=== PATIENT | female | born 1950 | race Caucasian/White ===

== ENCOUNTER 2019-05-18 19:59 | Emergency (ER) | payer MEDICARE, OTHER, SELFPAY ==
[2019-05-18 20:16] VITALS: BP 111/66; PULSE 70; RESP 16; TEMP 36.3; O2SAT 96; BMI 26.1
--- NOTE | 2019-05-18 20:37 | ECG_ITS ---
Measurements Intervals [place] Rate: 72 P: 61 SC: 128 QRS: 81 QRSD: 85 T: 62 QT: 403 QTc: 444 SINUS RHYTHM LOW QRS VOLTAGE [QRS DEFLECTION < 0.5/1.0 mV IN LIMB/CHEST LEADS] No previous ECG available for comparison Electronically Signed On 05-19-2019 20:45:29 WIRE TINNER by Bello Wright M.D. [id number]
--- NOTE | 2019-05-18 20:37 | XR_ITS ---
WS: [id number] PORTABLE CHEST HISTORY: cp COMPARISON: 04/15/2015 Hyperinflated lungs with changes of emphysema. Stable eventration RIGHT hemidiaphragm. No pneumonia. Normal vasculature. No pleural effusion or pneumothorax. Cardiac size: Normal. Mediastinum/Aorta: Mild atherosclerosis aorta. No osseous abnormality seen. XR/XR chest 1V portable [id number] IMPRESSION: Chronic emphysema and partially calcified aorta. No acute cardiopulmonary disea se.
[2019-05-18 21:10] LABS: Basophils # 0.1 10^3/uL (0.0-0.1); Basophils % 0.5 %; Eosinophils # 0.1 10^3/uL (0.0-0.8); Eosinophils % 0.8 %; Hematocrit 38.6 % (37.0-47.0); Hemoglobin 12.1 g/dL (11.5-15.3); Lymphocytes # 1.2 10^3/uL (0.8-4.8); Lymphocytes % 11.5 %; Mean Corpuscular HGB Conc 31.3 g/dL (30.0-36.0); Mean Corpuscular Hemoglobin 30.3 pg (28.0-34.0); Mean Corpuscular Volume 96.5 fL (81-99); Mean Platelet Volume 8.8 fL (7.4-10.4); Monocytes # 0.8 10^3/uL (0.2-0.9); Neutrophils # 8.6 10^3/uL (1.8-7.7); Neutrophils % 79.7 %; Nucleated Red Blood Cells % 0 %; Platelet Count 306 10^3/cmm (130-400); Red Cell Distribution Width 12.2 % (12.1-15.1); White Blood Count 10.7 10^3/uL (4.0-10.0)
--- NOTE | 2019-05-18 21:13 | ED_ITS ---
HPI - General Adult General: Chief complaint: General Medical Stated complaint: sob Time Seen by Provider: 05/18/19 21:13 Source: patient Mode of arrival: ambulatory Limitations: no limitations Review of Systems General: Reports: 10 or more systems reviewed and unremarkable except in HPI and below PFSH ED PFSH: Social History Smoking and tobacco status: former smoker Alcohol intake: current Marital status: History of recent travel: No Current gender identity: Female Physical Exam Const: COMMON NORMALS: no apparent distress and oriented x3 GENERAL APPEARANCE: cooperative HENMT: COMMON NORMALS: normocephalic, external ears normal, EAC's normal, TM's normal bilaterally and external nose normal HEAD & SCALP: normal to inspection and normocephalic FACE & SINUS: normal facial exam NOSE: external nose normal GENERAL EAR: hearing not grossly impaired EXTERNAL EAR: Yes external ears normal EXTERNAL AUDITORY CANAL: EAC's normal TYMPANIC MEMBRANE: TM's normal bilaterally MOUTH: oral and palatal mucosa normal THROAT: posterior oropharynx normal Eye: COMMON NORMALS: PERRL and EOMs intact bilaterally PUPIL: Yes PERRL Neck/C-Spine: COMMON NORMALS: full ROM and no lymphadenopathy Lymph: LYMPHATIC: no lymphedema noted Chest: COMMONS NORMALS: inspection of chest normal and palpation of chest normal Resp: COMMON NORMALS: normal respiratory effort and clear to auscultation bilaterally AUSCULTATION: clear to auscultation bilaterally Cardio: COMMON NORMALS: regular rate and regular rhythm RATE: regular rate RHYTHM: regular rhythm GI: COMMON NORMALS: normal to inspection, nondistended, normoactive bowel sounds and non-tender : COMMON NORMALS: Yes no CVA tenderness BLADDER/KIDNEY EXAM: Yes no CVA tenderness Back/Pelvis: COMMON NORMALS: no CVA tenderness and thoracic and lumbar spine normal to inspection Extremity: COMMON NORMALS: normal to inspection GENERAL: No edema Neuro: COMMON NORMALS: oriented x3, moves all extremities and no focal motor deficits Psych: COMMON NORMALS: mental status grossly normal and cooperative Skin: COMMON NORMALS: no rashes or lesions noted GENERAL SKIN EXAM: no rashes or lesions noted Course Vital Signs: Vital signs: Vital Signs Temperature 97.3 F L 05/18/19 20:16 Pulse Rate 70 05/18/19 20:16 Respiratory Rate 16 05/18/19 20:16 Blood Pressure 111/66 05/18/19 20:16 Pulse Oximetry 96 05/18/19 20:16 [facility] - General Adult Lab Data: Labs: Lab Results 05/18/19 Range/Units 20:54 WBC 10.7 H (4.0-10.0) 10^3/ uL RBC 4.00 L (4.1-5.3) 10^6/u L Hgb 12.1 (11.5-15.3) g/dL Hct 38.6 (37.0-47.0) % MCV 96.5 (81-99) fL MCH 30.3 (28.0-34.0) pg MCHC 31.3 (30.0-36.0) g/dL RDW 12.2 (12.1-15.1) % Plt Count 306 (130-400) 10^3/c mm MPV 8.8 (7.4-10.4) fL Neut % (Auto) 79.7 % Lymph % (Auto) 11.5 % [place] % (Auto) 7.0 % Eos % (Auto) 0.8 % Baso % (Auto) 0.5 % Neut # (Auto) 8.6 H (1.8-7.7) 10^3/u L Lymph # (Auto) 1.2 (0.8-4.8) 10^3/u L [place] # (Auto) 0.8 (0.2-0.9) 10^3/u L Eos # (Auto) 0.1 (0.0-0.8) 10^3/u L Baso # (Auto) 0.1 (0.0-0.1) 10^3/u L Nucleated RBC % (a uto) 0 % Nucleated RBCs # 0.0 /100WBC Discharge Plan Discharge Prescriptions: No Action losartan 50 mg tablet 50 mg PO BID RF: 0 rosuvastatin 40 mg tablet 40 mg PO DAILY RF: 0 budesonide 0.25 mg/2 mL suspension for nebulization 2 ml INHALATION BID RF: 0 Brovana 15 mcg/2 mL solution for nebulization 2 ml INHALATION BID RF: 0 clopidogrel 75 mg tablet 75 mg PO DAILY RF: 0 aspirin 325 mg tablet,delayed release (DR/EC) 325 mg PO DAILY RF: 0 folic acid 1 mg tablet 1 mg PO DAILY RF: 0 ergocalciferol (vitamin D2) 2,000 unit tablet 2,000 unit PO DAILY RF: 0 Coding Level of Care Code ED [employer] Supervisor for Claude Luo
[2019-05-18 21:16] LABS: Alanine Aminotransferase 14 U/L (0-33); Albumin Level 4.1 g/dL (3.5-5.2); Alkaline Phosphatase 41 IU/L (35-105); Aspartate Amino Transferase 18 U/L (0-32); Blood Urea Nitrogen 15 mg/dL (8-23); Calcium 9.6 mg/dL (8.5-10.5); Carbon Dioxide 24 mmol/L (22-29); Chloride 99 mmol/L (98-107); Globulin 3.1 g/dL (1.3-4.6); Glomerular Filtration Rate 61.9 mL/min (90-130); Glucose 116 mg/dL (65-115); Lipase 39 U/L (13-60); Sodium 137 mmol/L (136-145); Total Bilirubin 0.3 mg/dL (0.15-1.2); Total Protein 7.2 g/dL (6.6-8.7)
--- NOTE | 2019-05-18 21:21 | ED_ITS ---
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 Pt states she took some PeptoBismol and she seems to be feeling better now. The pain lasted for about 45 min, and started while she was riding in the car. She had some SOB and pain radiating up into her left arm that has also resolved. complaint: Abd pain/SOB Onset (ago): hour(s) (1) Location: abdomen, left and upper extremity Severity: moderate Quality: other (tight band around her abd) Pain Consistency: now resolved Associated symptoms: Reports dyspnea, short of breath and weakness; Deny chest pain, headache(s) or rash Review of Systems Const: Denies: fever, chills, body aches or change in appetite Eyes: Denies: blurry vision or eye discomfort ENMT: Denies: throat pain or dental pain Card: Denies: chest pain Resp: Reports: shortness of breath GI: Reports: abdominal pain; Denies: diarrhea : Denies: painful urination Musc: Reports: extremity pain Skin/Breast: Denies: rash Neuro: Denies: headache Psych: Denies: depression Murali/Lymph: Denies: easy bruising All/Imm: Denies: hives [facility] ED PFSH: Social History Smoking and tobacco status: former smoker Alcohol intake: current Marital status: History of recent travel: No Current gender identity: Female Physical Exam Const: COMMON NORMALS: no apparent distress, oriented x3 and healthy appearing HENMT: COMMON NORMALS: normocephalic and head/scalp atraumatic HEAD & SCALP: normocephalic and atraumatic Eye: COMMON NORMALS: PERRL and EOMs intact bilaterally PUPIL: Yes PERRL Neck/C-Spine: COMMON NORMALS: full ROM and supple Chest: COMMONS NORMALS: inspection of chest normal and palpation of chest normal Resp: COMMON NORMALS: normal respiratory effort, no retractions, no use of accessory muscles and clear to auscultation bilaterally AUSCULTATION: clear to auscultation bilaterally Cardio: COMMON NORMALS: regular rate, regular rhythm and no murmurs RATE: regular rate RHYTHM: regular rhythm GI: COMMON NORMALS: normal to inspection, nondistended, normoactive bowel sounds, soft to palpation, non-tender and no masses PALPATION: Yes soft Extremity: COMMON NORMALS: normal to inspection and full ROM Neuro: COMMON NORMALS: oriented x3, moves all extremities and no focal motor deficits Psych: COMMON NORMALS: mental status grossly normal, thought process normal and cooperative THOUGHT PROCESS: normal thought process Skin: COMMON NORMALS: no rashes or lesions noted and no wounds GENERAL SKIN EXAM: no rashes or lesions noted Course Vital Signs: Vital signs: Vital Signs Temperature 97.3 F L 05/18/19 20:16 Pulse Rate 70 05/18/19 20:16 Respiratory Rate 16 05/18/19 20:16 Blood Pressure 111/66 05/18/19 20:16 Pulse Oximetry 96 05/18/19 20:16 MDM - General Adult MDM Narrative: Medical decision making narrative: Patient presents here with chest pain abdominal pain is atypical in nature. Patient's had no pain here and has no risk factors. Her initial and repeat troponin here are normal and she has had no pain while she is here. She is to follow-up with her primary care doctor in 3 to 5 days is return to the ER if worsening. Lab Data: Labs: Lab Results 05/18/19 05/18/19 05/18/19 Range/Units 20:54 20:54 20:54 WBC 10.7 H (4.0-10.0) 10^3/ uL RBC 4.00 L (4.1-5.3) 10^6/u L Hgb 12.1 (11.5-15.3) g/dL Hct 38.6 (37.0-47.0) % MCV 96.5 (81-99) fL MCH 30.3 (28.0-34.0) pg MCHC 31.3 (30.0-36.0) g/dL RDW 12.2 (12.1-15.1) % Plt Count 306 (130-400) 10^3/c mm MPV 8.8 (7.4-10.4) fL Neut % (Auto) 79.7 % Lymph % (Auto) 11.5 % [place] % (Auto) 7.0 % Eos % (Auto) 0.8 % Baso % (Auto) 0.5 % Neut # (Auto) 8.6 H (1.8-7.7) 10^3/u L Lymph # (Auto) 1.2 (0.8-4.8) 10^3/u L [place] # (Auto) 0.8 (0.2-0.9) 10^3/u L Eos # (Auto) 0.1 (0.0-0.8) 10^3/u L Baso # (Auto) 0.1 (0.0-0.1) 10^3/u L Nucleated RBC % (a uto) 0 % Nucleated RBCs # 0.0 /100WBC Sodium 137 (136-145) mmol/L Potassium 4.0 (3.5-5.1) mmol/L Chloride 99 (98-107) mmol/L Carbon Dioxide 24 (22-29) mmol/L Anion Gap 18.0 (5-19) BUN 15 (8-23) mg/dL Creatinine 0.9 (0.5-0.9) mg/dL GFR Calculation 61.9 L (90-130) mL/min Glucose 116 H (65-115) mg/dL Calcium 9.6 (8.5-10.5) mg/dL Total Bilirubin 0.3 (0.15-1.2) mg/dL AST 18 (0-32) U/L ALT 14 (0-33) U/L Alkaline Phosphata se 41 (35-105) IU/L Troponin T Baselin e 20 H (0-10) ng/mL Troponin T 120 Min [place] (0-10) ng/mL Total Protein 7.2 (6.6-8.7) g/dL Albumin 4.1 (3.5-5.2) g/dL Globulin 3.1 (1.3-4.6) g/dL Lipase 39 (13-60) U/L 05/18/19 Range/Units 22:37 WBC (4.0-10.0) 10^3/ uL RBC (4.1-5.3) 10^6/u L Hgb (11.5-15.3) g/dL Hct (37.0-47.0) % MCV (81-99) fL MCH (28.0-34.0) pg MCHC (30.0-36.0) g/dL RDW (12.1-15.1) % Plt Count (130-400) 10^3/c mm MPV (7.4-10.4) fL Neut % (Auto) % Lymph % (Auto) % [place] % (Auto) % Eos % (Auto) % Baso % (Auto) % Neut # (Auto) (1.8-7.7) 10^3/u L Lymph # (Auto) (0.8-4.8) 10^3/u L [place] # (Auto) (0.2-0.9) 10^3/u L Eos # (Auto) (0.0-0.8) 10^3/u L Baso # (Auto) (0.0-0.1) 10^3/u L Nucleated RBC % (a uto) % Nucleated RBCs # /100WBC Sodium (136-145) mmol/L Potassium (3.5-5.1) mmol/L Chloride (98-107) mmol/L Carbon Dioxide (22-29) mmol/L Anion Gap (5-19) BUN (8-23) mg/dL Creatinine (0.5-0.9) mg/dL GFR Calculation (90-130) mL/min Glucose (65-115) mg/dL Calcium (8.5-10.5) mg/dL Total Bilirubin (0.15-1.2) mg/dL AST (0-32) U/L ALT (0-33) U/L Alkaline Phosphata se (35-105) IU/L Troponin T Baselin e (0-10) ng/mL Troponin T 120 Min [place] 19.64 H (0-10) ng/mL Total Protein (6.6-8.7) g/dL Albumin (3.5-5.2) g/dL Globulin (1.3-4.6) g/dL Lipase (13-60) U/L Imaging Data^: CXR: Attestation: I personally reviewed and interpreted this imaging study as follows: My impression: no acute abnormality EKG Data^: EKG 1: EKG interpretation date: 05/18/19 EKG interpretation time: 20:27 Interpretation: nsr hr [address] or t wave abnormalities EKG 2: Attestation: I personally reviewed and interpreted this EKG as follows: EKG interpretation date: 05/18/19 EKG interpretation time: 22:50 Interpretation: nsr hr [address] or t wave abnormalities Discharge Plan Discharge Patient Disposition: Home, Self-Care Clinical Impression: Chest pain Qualifiers: Chest pain type: other chest pain Qualified Code(s): R07.89 - Other chest pain Condition: Stable Prescriptions: No Action losartan 50 mg tablet 50 mg PO BID RF: 0 rosuvastatin 40 mg tablet 40 mg PO DAILY RF: 0 budesonide 0.25 mg/2 mL suspension for nebulization 2 ml INHALATION BID RF: 0 Brovana 15 mcg/2 mL solution for nebulization 2 ml INHALATION BID RF: 0 clopidogrel 75 mg tablet 75 mg PO DAILY RF: 0 aspirin 325 mg tablet,delayed release (DR/EC) 325 mg PO DAILY RF: 0 folic acid 1 mg tablet 1 mg PO DAILY RF: 0 ergocalciferol (vitamin D2) 2,000 unit tablet 2,000 unit PO DAILY RF: 0 Discharge Orders: Discharge Order (Routine); Ordered 05/18/19 Ordered By: Vita Dong Referrals: Bruce Watson MD [Primary Care Provider] - 4-7 days Discharge Diet: Advance as tolerated Discharge Activity: Resume usual activity Patient Instructions: Chest Pain (ED) Coding Level of Care Code ED Screening Technician for Chg Fwd Exam Problem Focused The documentation recorded by the Herminio dubois Ashley, accurately reflects the service I personally performed and the decisions made by Iker barry Korby, MD May 18, 2019 19:59
[2019-05-18 21:32] LABS: Troponin(5th) Baseline 20 ng/mL (0-10)
--- NOTE | 2019-05-18 22:37 | ECG_ITS ---
Measurements Intervals [place] Rate: 64 P: 23 GA: 95 QRS: 96 QRSD: 68 T: 81 QT: 405 QTc: 420 SINUS RHYTHM WITH SHORT GA INTERVAL BORDERLINE RIGHT AXIS DEVIATION [QRS AXIS > 90] LOW QRS VOLTAGE [QRS DEFLECTION < 0.5/1.0 mV IN LIMB/CHEST LEADS] ST ELEVATION, CONSIDER Early repolarization No previous ECG available for comparison Electronically Signed On 05-19-2019 20:50:38 TRIMMING INSPECTOR by Bello Wright M.D. [email or web address]
[2019-05-18 23:12] LABS: Troponin 5 2HR 19.64 ng/mL (0-10)
[2019-05-18 23:21] LABS: Troponin 5 2HR Delta -0.36 ABS# (0-10)
[2019-05-18 23:31] VITALS: BP 115/56; PULSE 68; RESP 21; O2SAT 97
== END 2019-05-18 23:31 | disposition home or self-care (01) ==
PROVIDERS: Emergency Provider Emergency Medicine; Family Provider Family Medicine; PCP Family Medicine
DX: R07.89 Other chest pain (principal); Z87.891 Personal history of nicotine dependence
CPT/HCPCS: 71045; 80053; 83690; 84484; 85025; 93005; 99281; 99283

== ENCOUNTER 2019-05-29 07:28 | Day surgery (SDC) | payer MEDICARE, OTHER, SELFPAY ==
[2019-05-26 14:03] VITALS: BMI 26.1
[2019-05-29 07:50] VITALS: BP 104/52; PULSE 80; RESP 18; TEMP 37; O2SAT 99
[2019-05-29] MEDS: sodium chloride 0.9% 1,000 ML 30 ML (07:58)
--- NOTE | 2019-05-29 08:44 | ANES.PREANE2 ---
Pre-Anesthetic Assessment Pre-Anesthetic Assessment: Height/Weight: Height 1.63 m Weight 68.946 kg Temp Pulse Resp BP Pulse Ox 98.6 F 80 18 104/52 99 05/29/19 07:50 05/29/19 07:50 05/29/19 07:50 05/29/19 07:50 05/29/19 07:50 Preop Diagnosis: FH colon cancer Proposed Procedure: Operation Date: 05/29/19 09:00 Proposed Procedures p COLON(Not Applicable) - Artur Valentin MD Was Beta Aries taken within 24 hours: N/A Last intake: Intake Last Liquid Date 05/28/19 Last Liquid Time 22:00 Last Solid Date 05/27/19 Social: Social History: Tobacco (quit 7 yr ago) and No alcohol Exam: Pre-Anes Outpt Exam: alert and oriented x 3 History/ROS: No significant history except as noted and No significant complaints Pulmonary: Pulmonary: COPD CV/HEM: CV/HEM: HTN and PVD Comments: peripheral leg stents 2012. saw Dr. Hinojosa : : None reported Hepatic: Hepatic: None reported GI: GI: GERD (occasional) Metabolic: Metabolic: Hyperlipidemia Musc/skel: Musc/skel: OA/DJD Neuropsych: Neuropsych: None reported Anesthetic Plan: ASA status: 3 Anesthesia: MAC PFSH Anesthesia PFSH: Social History Smoking and tobacco status: former smoker Alcohol intake: current Marital status: History of recent travel: No Current gender identity: Female Data Anesthesia Cardiac Studies: No Data to Display
--- NOTE | 2019-05-29 08:58 | W.PM.OPSUD ---
Surgery/Procedure H&P Update DATE OF PROCEDURE: May 29, 2019 DATE H&P PERFORMED: 05/18/19 PREOP DIAGNOSIS: FH colon cancer PLANNED PROCEDURE: Operation Date: 05/29/19 09:00 Proposed Procedures p COLON(Not Applicable) - Artur Valentin MD
[2019-05-29 09:20] VITALS: BP 81/53; PULSE 60; RESP 16; TEMP 36.3; O2SAT 100
--- NOTE | 2019-05-29 09:28 | SUR.OPER ---
RESOLUTION CLIP PLACED IN RECTUM FOR PREVENTION MEASURES FOLLOWING REMOVAL OF RECTAL POLYP.
--- NOTE | 2019-05-29 09:29 | ANE.PACU2 ---
 Inpatient post-anesthesia follow up: Airway intact: Yes Vital signs: Temperature 97.3 F Pulse Rate 60 Respiratory Rate 16 Blood Pressure 81/53 Pulse Oximetry 100 Oxygen Delivery Me thod Nasal Cannula Oxygen Flow Rate 2 Fraction of Inspir ed Oxygen Hydration adequate: Yes Nausea and vomiting: No Mental status: Baseline
[2019-05-29 09:35] VITALS: BP 102/66; PULSE 64; RESP 18; TEMP 36.3; O2SAT 99
== END 2019-05-29 09:51 | disposition home or self-care (01) ==
PROVIDERS: Family Provider Family Medicine; PCP Family Medicine; Visit Provider Internal Medicine
PROC: 0DJD8ZZ Inspection of Lower Intestinal Tract, Via Natural or Artificial Opening Endoscopic (ICD-10-PCS; CPT 45378; principal; 2019-05-29 09:00)
DX: Z12.11 Encounter for screening for malignant neoplasm of colon (principal); D12.8 Benign neoplasm of rectum; K57.30 Diverticulosis of large intestine without perforation or abscess without bleeding; Z80.0 Family history of malignant neoplasm of digestive organs; Z79.82 Long term (current) use of aspirin; Z87.891 Personal history of nicotine dependence; J44.9 Chronic obstructive pulmonary disease, unspecified; I10 Essential (primary) hypertension; Z95.820 Peripheral vascular angioplasty status with implants and grafts; E78.5 Hyperlipidemia, unspecified; K21.9 Gastro-esophageal reflux disease without esophagitis
CPT/HCPCS: 12345; 45385; 88305; J2704; J7030

== ENCOUNTER 2019-06-02 01:23 | Inpatient (IN) | payer MEDICARE, OTHER, SELFPAY ==
[2019-06-02] VITALS (60 sets, daily range): BP systolic 70–120; BP diastolic 39–81; PULSE 64–106; RESP 14–32; TEMP 36.2–37.4; O2SAT 77–100; BMI 26.1
--- NOTE | 2019-06-02 01:37 | PC.NURSE ---
PATIENT STATES SHE HAD A POLYP REMOVED ON WEDNESDAY AND TODAY IN THE AFTERNOON SHE STARTED HAVING BRIGHT RED BLOOD IN HER STOOL. PATIENT STATES SHE HAS BEEN MEASURING SINCE 1900 TONIGHT AND IT HAS BEEN ABOUT 2 CUPS OF BLOOD AND BLOOD CLOTS. PATIENT STATES SHE HAS BEEN FEELING DIZZY TODAY.
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
[2019-06-02 01:54] LABS: Basophils # 0.1 10^3/uL (0.0-0.1); Basophils % 0.7 %; Eosinophils # 0.1 10^3/uL (0.0-0.8); Eosinophils % 1.8 %; Hematocrit 29.6 % (37.0-47.0); Hemoglobin 9.5 g/dL (11.5-15.3); Lymphocytes # 1.6 10^3/uL (0.8-4.8); Lymphocytes % 21.5 %; Mean Corpuscular HGB Conc 32.1 g/dL (30.0-36.0); Mean Corpuscular Hemoglobin 29.5 pg (28.0-34.0); Mean Corpuscular Volume 91.9 fL (81-99); Mean Platelet Volume 8.7 fL (7.4-10.4); Monocytes # 0.5 10^3/uL (0.2-0.9); Monocytes % 6.5 %; Neutrophils # 5.3 10^3/uL (1.8-7.7); Neutrophils % 69.1 %; Nucleated Red Blood Cells % 0 %; Platelet Count 311 10^3/cmm (130-400); Red Blood Count 3.22 10^6/uL (4.1-5.3); Red Cell Distribution Width 12.2 % (12.1-15.1); White Blood Count 7.6 10^3/uL (4.0-10.0)
[2019-06-02] MEDS: pantoprazole 40 mg SDV 80 MG IVP (01:58)
[2019-06-02] MEDS: sodium chloride 0.9% 1,000 ML 999 ML IV (01:58)
[2019-06-02] MEDS: ondansetron 2 mg/ML SDV 2 mL 4 MG IVP (01:58)
[2019-06-02 02:04] LABS: INR 1.04 (0.8-1.2)
[2019-06-02 02:05] LABS: Partial Thromboplastin Time 28.5 SECONDS (23.9-36.7)
--- NOTE | 2019-06-02 02:11 | PC.NURSE ---
EKG done at 0205 and shown to ER nurse practitioner
[2019-06-02 02:15] LABS: Alanine Aminotransferase 11 U/L (0-33); Albumin Level 3.9 g/dL (3.5-5.2); Alkaline Phosphatase 34 IU/L (35-105); Anion Gap 15.8 (5-19); Aspartate Amino Transferase 14 U/L (0-32); Blood Urea Nitrogen 19 mg/dL (8-23); Calcium 9.3 mg/dL (8.5-10.5); Carbon Dioxide 25 mmol/L (22-29); Chloride 99 mmol/L (98-107); Creatinine Clr Calc Pharmacy 62.3907; Globulin 2.6 g/dL (1.3-4.6); Glomerular Filtration Rate 70.9 mL/min (90-130); Glucose 145 mg/dL (65-115); Potassium 3.8 mmol/L (3.5-5.1); Sodium 136 mmol/L (136-145); Total Bilirubin 0.2 mg/dL (0.15-1.2); Total Protein 6.5 g/dL (6.6-8.7)
[2019-06-02 02:16] LABS: Troponin(5th) Baseline 22 ng/mL (0-10)
[2019-06-02] MEDS: sodium chloride 0.9% 1,000 ML 100 ML IV (02:36)
[2019-06-02 02:42] LABS: Alcohol Level < 10 mg/dL (0-10)
--- NOTE | 2019-06-02 03:38 | ECG_ITS ---
Measurements Intervals [place] Rate: 62 P: 75 HI: 130 QRS: 92 QRSD: 82 T: 76 QT: 440 QTc: 449 SINUS RHYTHM BORDERLINE RIGHT AXIS DEVIATION [QRS AXIS > 90] LOW QRS VOLTAGE [QRS DEFLECTION < 0.5/1.0 mV IN LIMB/CHEST LEADS] Compared to ECG 05/18/2019 22:50:18 Short HI interval no longer present ST (T wave) deviation no longer present Electronically Signed On 06-02-2019 11:14:59 BEHAVIORAL SERVICES TECH by Jolly Newton M.D. [id number]
[2019-06-02 03:50] LABS: Troponin 5 2HR 20.63 ng/mL (0-10)
--- NOTE | 2019-06-02 03:54 | PC.NURSE ---
EKG done at 0352 and shown to ER doctor
[2019-06-02] MEDS: sodium chloride 0.9% 100 ML (04:12)
--- NOTE | 2019-06-02 04:16 | CTR_ITS ---
PROCEDURE INFORMATION: Exam: CT Abdomen And Pelvis With Contrast Exam date and time: 06/02/2019 4:33 AM Age: 68 years old Clinical indication: Other: Rectal bleeding; Abdominal pain; Generalized; Prior surgery; Surgery date: 6+ months; Surgery type: Kidney SX; Patient HX: PT had colonoscopy with polyp removal 4 days ago. TECHNIQUE: Imaging protocol: Computed tomography of the abdomen and pelvis with intravenous contrast. Total DLP: 676.71 mGy-cm Radiation optimization: All CT scans at this facility use at least one of these dose optimization techniques: automated exposure control; mA and/or kV adjustment per patient size (includes targeted exams where dose is matched to clinical indication); or iterative reconstruction. Contrast material: OMNI 300; Contrast volume: 95 ml; Contrast route: 20G; COMPARISON: No relevant prior studies available. FINDINGS: Lungs: Lung bases are clear. Mediastinum: There is a small sliding-type hiatal hernia. Liver: The liver is normal. Gallbladder and bile ducts: The gallbladder is normal. There is no biliary dilation. Pancreas: The pancreas is unremarkable. Spleen: The spleen is unremarkable. Adrenals: The adrenal glands are unremarkable. Kidneys and ureters: Extensive bilateral renal vascular calcification. No obstructive stones. There is no hydronephrosis or ureteral dilation. Stomach and bowel: There is multifocal mild amorphous high attenuation material visible in the distal sigmoid colon adjacent to a surgical clip see axial series 2 image 63 through 72. The stomach is unremarkable. The small bowel is nondilated. There is no sign of inflammation. Appendix: The appendix is normal. Intraperitoneal space: There is no free air or significant intraperitoneal free fluid. Vasculature: Severe diffuse aortic atherosclerotic disease. Saccular aneurysm of the infrarenal abdominal aorta measuring up to 3.9 cm. Bilateral common iliac vein stents are occluded. There is reconstitution of the stenotic bilateral femoral arteries. Lymph nodes: Unremarkable. No enlarged lymph nodes. Bladder: There is trace gas in the bladder lumen. Reproductive: The uterus and adnexa are unremarkable. Bones/joints: There is moderate degenerative disease in the lumbar spine. The left hip prosthesis is intact and well aligned. The pelvis and hips are intact. Soft tissues: The abdominal wall is intact. CT/CT abdomen pelvis w con* [id number] IMPRESSION: 1. Suspect active bleeding near a surgical clip in the distal sigmoid colon. 2. Trace gas in the bladder lumen may be due to catheterization or cystitis. 3. 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 4. 3.9 cm infrarenal abdominal aortic aneurysm. Follow-up imaging in 2 years is recommended. Radiation Dose CTDIVOL = (mGy): DLP = 676.71 (mGy-cm)
[2019-06-02 04:47] LABS: Troponin 5 2HR Delta 1.37 ABS# (0-10)
[2019-06-02] MEDS: iohexol 300 mg/mL 100 mL Btl IV (05:09)
--- NOTE | 2019-06-02 05:51 | USCV_ITS ---
Anam Emy Age: 68 Gender: F : 1950 Exam Date: 06/02/2019 06:20 Ordering Phys: Leah Laura DO Technologist: Elizabeth Padilla Exam Location: [facility]_ Indication: ABNORMAL CT FINDINGS Risk Factors: Previous Vascular Surgery: RIGHT LEFT BP: / BP: 102.0/ 0 Waveform Velocity (cm/s) Velocity (cm/s) Waveform Monophasic 84.9 Iliac Prox 87.6 Monophasic Monophasic 89.9 Iliac Mid 61.6 Monophasic Monophasic Iliac Distal Monophasic 88.9 105.8 Monophasic 221.0 DEMOLITION EXPERT 142.9 Monophasic Monophasic 135.2 SFA Prox 143.9 Monophasic Biphasic 47.0 SFA Mid 88.1 Biphasic Biphasic 45.4 SFA Dist 48.2 Biphasic Biphasic 38.0 POP 55.2 Biphasic Monophasic 26.8 SEISMOMETER OPERATOR 30.3 Biphasic Monophasic DPA 70.3 Monophasic 0.8 JESSE 0.8 FINDINGS Moderate diffuse heterogeneous plaques in the iliac and femoral arteries bilaterally. Abnormal resting JESSE of 0.8 bilaterally. CONCLUSIONS Diminished resting ABIs bilaterally suggestive of moderate peripheral arterial disease. Moderate diffuse heterogeneous plaques in the iliac and femoral arteries bilaterally. Consider exercise JESSE, to further evaluate the functional significance, if clinically indicated Dr Estephanie Driscoll MD [facility] (Electronically Signed) Final Date: 03 June 2019 20:06 S
[2019-06-02 06:22] LABS: Bilirubin Urine Neg (NEGATIVE); Blood Urine Neg (Negative); Glucose Urine UA Norm (Normal); Ketones Urine Negative (Negative); Leukocyte Esterase Urine Negative (Negative); Nitrate Urine Negative (Negative); Protein Urine 1+ (Negative); Specific Gravity, Urine 1.005 (1.005-1.030); Urine Appearance Clear (CLEAR); Urine Color Yellow (Yellow); Urobilinogen Urine Norm (Negative); pH Urine 5 (5-7)
[2019-06-02 06:29] LABS: Add Urine Culture? No; Bacteria Urine TRACE; Mucus Urine TRACE; RBC Urine 0-4 /hpf (0-2); Squamous Epithelial Cell Urine 0-4 (0-5)
--- NOTE | 2019-06-02 06:50 | PC.NURSE ---
Pt arrived from emergency room via gurney. Pt arrived alert and oriented with blood infusing and finished infusing on arrival to unit. Transfusion vitals taken at this time. Pt denies abdominal pain. Dr. Phillips at bedside rounding at this time.
--- NOTE | 2019-06-02 07:26 | PC.NURSE ---
Report given to MEY Azul.
--- NOTE | 2019-06-02 07:38 | ECG_ITS ---
Measurements Intervals [place] Rate: 82 P: 72 NH: 137 QRS: 81 QRSD: 78 T: 66 QT: 373 QTc: 438 SINUS RHYTHM LOW QRS VOLTAGE IN PRECORDIAL LEADS [QRS DEFLECTION < 1.0 mV IN CHEST LEADS] Compared to ECG 05/18/2019 22:50:18 Short [place] interval no longer present ST (T wave) deviation no longer present Electronically Signed On 06-02-2019 11:15:31 SALES ASSOCIATE KEY HOLDER by Jolly Newton M.D. [id number]
[2019-06-02 09:01] LABS: Troponin 5 6HR 20.09 ng/mL (0-10)
[2019-06-02 09:02] LABS: Troponin 5 6HR Delta -1.91 ng/L (0-12)
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
--- NOTE | 2019-06-02 10:56 | PC.CHAP ---
Pastoral Care Encounter/Spiritual Assessment Type of Contact [] Declined building tech visit [] Patient/Family/Request visit [] Outpatient visit [] Follow-up visit [] Physician referral [] Code/Alert [x] Routine visit [] Staff referral [] Actively dying [] Patient sleeping [x] Family support [] [] Out of room [] Palliative care [] [] Receiving care in room [] Pre-surgical visit [] Trauma [] Long length of stay [x] ICU visit [] Other: Relational/Emotional Strength [] Patient feels connected with others/family/visitors/staff [] Distress [] Loneliness/isolation [] Abandonment Spirituality of Patient [] Person of Sandy [] Attends Voodoo of their Sandy [x] Believes in Prayer [] Reads Bible or Congregational materials [] There are Spiritual issues to be addressed Hooker Laster Interventions [x] Prayer [] Active listening [] Non-anxious presence [] Spiritual/emotional support [] Crisis/trauma care [] Spiritual counseling [] Bereavement support [] Provided bereavement packet [] Provided Bible/devotional materials [] Provided toy/stuffed animal, coloring book to patient or family member [] Provided Communion [] Anointing/[place] [] Salvation [x] Completed spiritual assessment [] Other: Impact on Illness or Injury [] Angry [] Fearful [] Anxious [] Often cries [] Exhaustion [] Unable to work [] Unable to attend temple [] Unable to walk/stand [] Unable to read [] Unable to drive [] Unable to eat/drink [] Unable to sleep [] Unable to be with family [] Patient intubated [] Other: Summary Time spent with patient 10min
[2019-06-02] MEDS: sodium chloride 0.9% 1,000 ML 75 ML IV (12:19)
[2019-06-02] MEDS: sodium chloride 0.9% 100 ML 50 ML (12:21)
[2019-06-02 13:10] LABS: Hematocrit 28.3 % (37.0-47.0)
[2019-06-02 16:20] LABS: Hematocrit 27.1 % (37.0-47.0); Hemoglobin 8.4 g/dL (11.5-15.3)
[2019-06-02] MEDS: ondansetron 4 MG Tablet PO (18:37)
--- NOTE | 2019-06-02 19:41 | PC.NURSE ---
Call placed to Dr. Phillips concerning patient's stools and H&H. Orders received to administer one unit of RBCs. Draw H&H 2 hours after. Have 2 more units of RBCs on hold. Administer 50 mg Trazadone PO at bedtime.
--- NOTE | 2019-06-02 20:44 | PC.NURSE ---
lab called to check on status of blood. was told it would be 20-30 more minutes
[2019-06-02] MEDS: sodium chloride 0.9% 100 ML 10 ML (21:28)
[2019-06-03] VITALS (24 sets, daily range): BP systolic 75–105; BP diastolic 37–64; PULSE 59–87; RESP 15–24; TEMP 36.8–36.9; O2SAT 95–100; BMI 26.1
[2019-06-03 01:47] LABS: Hematocrit 25.4 % (37.0-47.0); Hemoglobin 8.1 g/dL (11.5-15.3)
--- NOTE | 2019-06-03 01:55 | PC.NURSE ---
Hemoglobin lab resulted. Dr. León consulted and instructed to give 250 ml NS bolus.
--- NOTE | 2019-06-03 02:46 | PC.NURSE ---
Pt BP 76/46, MAP 56. Dr. León notified. No orders at this time.
[2019-06-03 04:20] LABS: Basophils % 0.4 %; Eosinophils # 0.2 10^3/uL (0.0-0.8); Eosinophils % 2.4 %; Hematocrit 24.2 % (37.0-47.0); Lymphocytes # 1.3 10^3/uL (0.8-4.8); Lymphocytes % 17.6 %; Mean Corpuscular HGB Conc 33.1 g/dL (30.0-36.0); Mean Corpuscular Hemoglobin 28.5 pg (28.0-34.0); Mean Corpuscular Volume 86.1 fL (81-99); Mean Platelet Volume 9.3 fL (7.4-10.4); Monocytes # 0.5 10^3/uL (0.2-0.9); Monocytes % 7.2 %; Neutrophils # 5.2 10^3/uL (1.8-7.7); Nucleated Red Blood Cells % 0 %; Platelet Count 153 10^3/cmm (130-400); Red Blood Count 2.81 10^6/uL (4.1-5.3); Red Cell Distribution Width 16.4 % (12.1-15.1); White Blood Count 7.2 10^3/uL (4.0-10.0)
[2019-06-03] MEDS: sodium chloride 0.9% 1,000 ML 75 ML IV (06:14)
--- NOTE | 2019-06-03 07:44 | PM.PN ---
Subjective Subjective: Interval history: Bowel movement since yesterday evening. Has some hunger. No abdominal pain. History and physical reviewed. Medications: Reviewed: Yes Vitals/I&O/Wt Last Vital Signs Temp 97.9 F 06/02/19 21:57 Pulse 76 06/03/19 04:00 Resp 17 06/03/19 04:00 BP 85/45 06/03/19 04:00 Pulse Ox 98 06/03/19 04:00 06/02/19 06/03/19 06/03/19 22:59 06:59 14:59 Intake Total 1086.25 / 2536.25 903.75 / 3440.00 Output Total 1775 / 2325 Balance -688.75 / 211.25 903.75 / 1115.00 Weight last 48 hrs Weight 68.946 kg Weight 68.946 kg Physical Exam Narrative: EXAM NARRATIVE: General exam no apparent distress Cardiovascular regular rate and rhythm without murmur Lungs diminished breath sounds bilaterally but clear Abdomen is soft, positive bowel sounds Extremities no cyanosis clubbing or edema Data : 06/03/19 04:04 06/02/19 01:41 A&P Assessment and plan (1) Hematochezia: Hematochezia status post colonoscopy with polypectomy and clip placement on 05/29/2019. Patient is on aspirin and Plavix at home. She held her dose last night, therefore last dose was on the evening of 05/31/2019 Has received 3 units of blood at this time CT scan of the abdomen and pelvis in the emergency department showed bleeding from what appeared to be the site of the clip Patient asymptomatic currently, no bowel movement since last night Reduce fluids Continue clear liquids Repeat hemoglobin at noon with BMP Transfer upstairs if stable and no evidence of current bleeding Laboratory tomorrow as well Continue to hold Plavix and aspirin. No anticoagulation. Status: Acute Code(s): K92.1 - Melena Additional A&P Information Acute postoperative blood loss anemia from post polypectomy bleeding. See notation above Hypotension, resolving Known infrarenal abdominal aortic aneurysm: Followed closely by Dr. Hinojosa. 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 Hinojosa, holding aspirin and Plavix, continue home statin. Follow-up in the outpatient setting, no acute changes at this time Hypertension: Hold home losartan due to concern for hypotension as above DVT prophylaxis: SCDs, no pharmacologic prophylaxis due to concern for acute bleed CODE STATUS: Full code Attestations Medical Necessity Statement*: Needs continued hospitalization for close follow-up of post polypectomy bleeding with acute blood loss anemia, hypotension. Coding Level of Care Code Acute Web Applications Architect for [facility] Diagnoses Hematochezia K92.1
[2019-06-03] MEDS: budesonide 0.5 mg/2 mL Neb INHALATION ×2 (08:56→19:31)
--- NOTE | 2019-06-03 09:35 | P.PN_ITS ---
Subjective Subjective: Interval history: The patient has no complaints this morning. She is willing to stay in the hospital because I do not want to have to come back. She has not had any more bowel movements since last night around 6 PM. Vitals/I&O/Wt Last Vital Signs Temp 97.9 F 06/02/19 21:57 Pulse 78 06/03/19 09:15 Resp 16 06/03/19 08:56 BP 105/59 06/03/19 08:00 Pulse Ox 99 06/03/19 08:56 06/02/19 06/03/19 06/03/19 22:59 06:59 14:59 Intake Total 1086.25 / 2536.25 903.75 / 3440.00 400 / 400 Output Total 1775 / 2325 1200 / 1200 Balance -688.75 / 211.25 903.75 / 1115.00 -800 / -800 Weight last 48 hrs Weight 152 lb Weight 152 lb Physical Exam Narrative: EXAM NARRATIVE: Abdomen remains soft and nontender. Data : 06/03/19 04:04 06/02/19 01:41 A&P Assessment and plan (1) Hematochezia: It appears that the patient's bleeding has probably stopped. Her hemoglobin is relatively stable. We discussed the dilemma of restarting her on her Plavix and aspirin, and the timing of that being the dilemma here. She understands. Right now it appears the patient has probably stopped bleeding. If she shows further evidence of bleeding then a sigmoidoscopy could be entertained. Continue present management for now. The patient says she is hungry so I will allow her a soft diet. Status: Acute Code(s): K92.1 - Melena (2) Colonoscopy causing post-procedural bleeding: Status: Acute Code(s): K91.840 - Postprocedural hemorrhage of a digestive system organ or structure following a digestive system procedure Attestations Medical Necessity Statement*: See admitting service's notation. Coding Level of Care Code Acute Field Research Associate for [facility] Diagnoses Hematochezia K92.1 Colonoscopy causing post-procedural bleeding K91.840
[2019-06-03 13:17] LABS: Basophils % 0.5 %; Eosinophils # 0.2 10^3/uL (0.0-0.8); Hematocrit 25.2 % (37.0-47.0); Hemoglobin 7.8 g/dL (11.5-15.3); Lymphocytes % 13.3 %; Mean Corpuscular Hemoglobin 28.3 pg (28.0-34.0); Mean Corpuscular Volume 91.3 fL (81-99); Mean Platelet Volume 9.7 fL (7.4-10.4); Monocytes # 0.4 10^3/uL (0.2-0.9); Monocytes % 5.2 %; Neutrophils # 6.1 10^3/uL (1.8-7.7); Neutrophils % 78.7 %; Nucleated Red Blood Cells % 0 %; Platelet Count 162 10^3/cmm (130-400); Red Blood Count 2.76 10^6/uL (4.1-5.3); Red Cell Distribution Width 17.2 % (12.1-15.1); White Blood Count 7.8 10^3/uL (4.0-10.0)
[2019-06-03 13:56] LABS: Anion Gap 13.2 (5-19); Blood Urea Nitrogen 13 mg/dL (8-23); Calcium 8.3 mg/dL (8.5-10.5); Carbon Dioxide 23 mmol/L (22-29); Chloride 106 mmol/L (98-107); Creatinine Clr Calc Pharmacy 62.3907; Glomerular Filtration Rate 98.8 mL/min (90-130); Glucose 95 mg/dL (65-115); Osmolality Calculated 282 mOsm/kg (285-295); Potassium 4.2 mmol/L (3.5-5.1); Sodium 138 mmol/L (136-145)
[2019-06-03] MEDS: pantoprazole DR 40 mg Tablet PO (23:26)
[2019-06-04] VITALS (13 sets, daily range): BP systolic 91–117; BP diastolic 55–74; PULSE 18–91; RESP 16–20; TEMP 36.5–37.1; O2SAT 95–99
[2019-06-04 05:50] LABS: Basophils % 0.4 %; Eosinophils # 0.1 10^3/uL (0.0-0.8); Eosinophils % 1.8 %; Hematocrit 22.8 % (37.0-47.0); Hemoglobin 7.6 g/dL (11.5-15.3); Lymphocytes # 1.3 10^3/uL (0.8-4.8); Lymphocytes % 15.9 %; Mean Corpuscular HGB Conc 33.3 g/dL (30.0-36.0); Mean Corpuscular Hemoglobin 28.8 pg (28.0-34.0); Mean Corpuscular Volume 86.4 fL (81-99); Mean Platelet Volume 9.9 fL (7.4-10.4); Monocytes # 0.7 10^3/uL (0.2-0.9); Monocytes % 8.3 %; Neutrophils # 5.9 10^3/uL (1.8-7.7); Neutrophils % 73.3 %; Nucleated Red Blood Cells % 0 %; Platelet Count 169 10^3/cmm (130-400); Red Blood Count 2.64 10^6/uL (4.1-5.3); Red Cell Distribution Width 16.4 % (12.1-15.1)
[2019-06-04 06:47] LABS: Anion Gap 12.9 (5-19); Blood Urea Nitrogen 10 mg/dL (8-23); Carbon Dioxide 25 mmol/L (22-29); Chloride 104 mmol/L (98-107); Glucose 111 mg/dL (65-115); Osmolality Calculated 283 mOsm/kg (285-295); Potassium 3.9 mmol/L (3.5-5.1); Sodium 138 mmol/L (136-145)
[2019-06-04] MEDS: budesonide 0.5 mg/2 mL Neb INHALATION ×2 (07:22→20:54)
--- NOTE | 2019-06-04 08:59 | P.PN_ITS ---
Subjective Subjective: Interval history: The patient is now [facility] the ICU [facility] She says she is somewhat short winded when she gets up. She denies any abdominal pain. She said she had some old blood clots with a bowel movement overnight but has not had any other evidence of ongoing bleeding. Vitals/I&O/Wt Last Vital Signs Temp 98.1 F 06/04/19 07:19 Pulse 91 06/04/19 07:28 Resp 18 06/04/19 07:28 BP 110/65 06/04/19 07:19 Pulse Ox 95 06/04/19 07:28 06/03/19 06/04/19 06/04/19 22:59 06:59 14:59 Intake Total 240 / 940 Output Total 1200 / 2400 360 / 2760 Balance -960 / -1460 -360 / -1820 Weight last 48 hrs Weight 153 lb 4.4 oz Weight 152 lb Physical Exam Narrative: EXAM NARRATIVE: Abdomen remains nontender. Data : 06/04/19 04:40 06/04/19 04:40 A&P Assessment and plan (1) Hematochezia: The patient's hemoglobin has very slowly drifted down to 7.6. While I do not think she has any ongoing bleeding currently, given her shortness of breath/history of COPD, I agree with a transfusion. She is also agreeable. Status: Acute Code(s): K92.1 - Melena (2) Colonoscopy causing post-procedural bleeding: Status: Acute Code(s): K91.840 - Postprocedural hemorrhage of a digestive system organ or structure following a digestive system procedure Attestations Medical Necessity Statement*: See admitting service's notation. Coding Level of Care Code Acute Mixing Pan Tender for [facility] Diagnoses Hematochezia K92.1 Colonoscopy causing post-procedural bleeding K91.840
[2019-06-04] MEDS: pantoprazole DR 40 mg Tablet PO (09:31)
[2019-06-04] MEDS: sodium chloride 0.9% 100 ML (09:31)
--- NOTE | 2019-06-04 11:42 | PC.NURSE ---
Patient had small BM that consisted of bright red blood, liquid no stool was present.
[2019-06-04] MEDS: FUROsemide 10 mg/mL SDV 2mL 20 MG IVP (13:11)
--- NOTE | 2019-06-04 16:39 | PM.PN ---
Subjective Subjective: Interval history: Emy reported she was doing well this morning. Passed a stool but it was dark blood. No further bright red stools. She reports she was very short of breath with any exertion this morning. Medications: Reviewed: Yes Vitals/I&O/Wt Last Vital Signs Temp 98.5 F 06/04/19 15:09 Pulse 72 06/04/19 15:09 Resp 18 06/04/19 15:09 BP 99/65 06/04/19 15:09 Pulse Ox 97 06/04/19 15:09 06/04/19 06/04/19 06/04/19 06:59 14:59 22:59 Intake Total 60 / 60 Output Total 360 / 2760 1000 / 1000 Balance -360 / -1820 -940 / -940 Weight last 48 hrs Weight 69.524 kg Weight 68.946 kg Physical Exam Narrative: EXAM NARRATIVE: General exam no apparent distress Cardiovascular regular rate and rhythm without murmur Lungs diminished breath sounds bilaterally but clear Abdomen is soft, positive bowel sounds Extremities no cyanosis clubbing or edema Data : 06/04/19 04:40 06/04/19 04:40 A&P Assessment and plan (1) Hematochezia: Hematochezia status post colonoscopy with polypectomy and clip placement on 05/29/2019. Patient is on aspirin and Plavix at home. She held her dose last night, therefore last dose was on the evening of 05/31/2019 Has received 3 units of blood at this time CT scan of the abdomen and pelvis in the emergency department showed bleeding from what appeared to be the site of the clip Patient asymptomatic currently, and does not appear to be actively bleeding Transfuse 1 unit of packed red blood cells secondary to symptomatic anemia, Lasix following the unit. Appreciate surgical consultation Continue to hold Plavix and aspirin Repeat CBC tomorrow, home if no evidence of active bleeding and symptomatically better Status: Acute Code(s): K92.1 - Melena Additional A&P Information Acute postoperative blood loss anemia from post polypectomy bleeding. See notation above Hypotension, resolved Known infrarenal abdominal aortic aneurysm: Followed closely by Dr. Hinojosa. 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 Hinojosa, holding aspirin and Plavix, continue home statin. 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
[2019-06-05] VITALS: BP 109/69; PULSE 79; RESP 16; TEMP 36.6; O2SAT 95
[2019-06-05 04:00] VITALS: BP 100/64; PULSE 69; RESP 16; TEMP 37.2; O2SAT 94
[2019-06-05 05:02] LABS: Basophils % 0.6 %; Eosinophils # 0.2 10^3/uL (0.0-0.8); Eosinophils % 3.4 %; Hematocrit 27.4 % (37.0-47.0); Lymphocytes # 1.5 10^3/uL (0.8-4.8); Lymphocytes % 21.8 %; Mean Corpuscular HGB Conc 32.8 g/dL (30.0-36.0); Mean Corpuscular Hemoglobin 28.6 pg (28.0-34.0); Mean Platelet Volume 9.6 fL (7.4-10.4); Monocytes # 0.6 10^3/uL (0.2-0.9); Monocytes % 9.3 %; Neutrophils # 4.3 10^3/uL (1.8-7.7); Neutrophils % 64.6 %; Nucleated Red Blood Cells % 0 %; Platelet Count 211 10^3/cmm (130-400); Red Blood Count 3.15 10^6/uL (4.1-5.3); Red Cell Distribution Width 15.5 % (12.1-15.1); White Blood Count 6.7 10^3/uL (4.0-10.0)
[2019-06-05 05:20] LABS: Anion Gap 13.7 (5-19); Blood Urea Nitrogen 9 mg/dL (8-23); Calcium 8.9 mg/dL (8.5-10.5); Carbon Dioxide 28 mmol/L (22-29); Chloride 102 mmol/L (98-107); Glucose 104 mg/dL (65-115); Osmolality Calculated 286 mOsm/kg (285-295); Potassium 3.7 mmol/L (3.5-5.1); Sodium 140 mmol/L (136-145)
--- NOTE | 2019-06-05 06:55 | P.PN_ITS ---
Subjective Subjective: Interval history: The patient continues to feel well. She said since I talked to her yesterday morning she had a tiny amount of bright red blood with a bowel movement and a very small amount of old clots. She is anxious to go home. Vitals/I&O/Wt Last Vital Signs Temp 98.9 F 06/05/19 04:00 Pulse 69 06/05/19 04:00 Resp 16 06/05/19 04:00 BP 100/64 06/05/19 04:00 Pulse Ox 94 06/05/19 04:00 06/04/19 06/04/19 06/05/19 14:59 22:59 06:59 Intake Total 60 / 60 600 / 660 100 / 760 Output Total 1000 / 1000 1000 / 2000 1150 / 3150 Balance -940 / -940 -400 / -1340 -1050 / -2390 Weight last 48 hrs Weight 153 lb 1 oz Weight 153 lb 4.4 oz Physical Exam Narrative: EXAM NARRATIVE: Abdomen remains nontender. Data : 06/05/19 04:23 06/05/19 04:23 A&P Assessment and plan (1) Hematochezia: The patient does not appear to have any significant ongoing bleeding. The issue will be deciding at what point to resume her anticoagulation at home. From my perspective, however, she appears to be safe for discharge. Status: Acute Code(s): K92.1 - Melena (2) Colonoscopy causing post-procedural bleeding: Status: Acute Code(s): K91.840 - Postprocedural hemorrhage of a digestive system organ or structure following a digestive system procedure Attestations Medical Necessity Statement*: See admitting service's notation. 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
[2019-06-05 07:24] VITALS: BP 97/61; PULSE 73; RESP 18; TEMP 37.1; O2SAT 96
[2019-06-05] MEDS: pantoprazole DR 40 mg Tablet PO (08:03)
[2019-06-05 11:15] VITALS: BP 124/73; PULSE 79; RESP 18; TEMP 36.8; O2SAT 98
--- NOTE | 2019-06-05 11:42 | PM.DCS ---
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 She reported that she recently had colonoscopy on Wednesday and had polyp removed. She reported that she is on aspirin and Plavix at home and had restarted these medications. Patient was seen and evaluated in the emergency department noted to have concern for lower GI bleed and acute anemia as well as hypotension. She was transfused packed red blood cells. General surgeon was consulted due to CT scan of the abdomen and pelvis showing active bleeding from the clip in the sigmoid colon. The patient's bleeding stopped by and therefore further colonoscopy was deferred. At time of discharge, her Hb is stable at 9.0. She had a tiny amount of bright red blood with a bowel movement and a very small amount of old clots, but mostly reported brown well formed stools. Her ASA and Plavix have been on hold since admission and given that she is still passing some clots,w ill continue to hold these upon discharge. We will arrange f/up with Dr. hinojosa's office this week to reassess timing of resuming antiplatelets. reports being on DAPT for peripheral vascular disease with stents in RLE placed several years ago. Physical Exam Narrative: EXAM NARRATIVE: GEN: Awake, alert and oriented, no acute distress CVS: S1S2 N RS: CTA B/L Abd: Soft, nt/nd , bs+ INTERNAL SPECIALIST: no focal neuro deficits Discharge Data Data Completed and Pending: Completed Studies During Hospitalization Category Date Time Status CT abdomen pelvis w con* [id number] Urge nt Cat Scan 06/02/19 04:16 [place] [id number] Urge nt Ultrasound 06/02/19 05:51 Completed Pending at discharge Category Date Time Status Leukocyte Reduced RBC Stat Lab 06/02/19 01:41 Results Type and Screen S tat Lab 06/02/19 01:41 Results Labs from last 24 hours 06/05/19 06/05/19 06/02/19 04:23 04:23 01:41 WBC 6.7 RBC 3.15 L Hgb 9.0 L Hct 27.4 L MCV 87.0 MCH 28.6 MCHC 32.8 RDW 15.5 H Plt Count 211 MPV 9.6 Neut % (Auto) 64.6 Lymph % (Auto) 21.8 [place] % (Auto) 9.3 Eos % (Auto) 3.4 Baso % (Auto) 0.6 Neut # (Auto) 4.3 Lymph # (Auto) 1.5 [place] # (Auto) 0.6 Eos # (Auto) 0.2 Baso # (Auto) 0.0 Nucleated RBC % (a uto) 0 Nucleated RBCs # 0.0 Sodium 140 Potassium 3.7 Chloride 102 Carbon Dioxide 28 Anion Gap 13.7 BUN 9 Creatinine 0.5 GFR Calculation 122.0 Glucose 104 Calculated Osmolal ity 286 Calcium 8.9 Crossmatch See Detail Vitals: Last Vital Signs Temp 98.3 F 06/05/19 11:15 Pulse 79 06/05/19 11:15 Resp 18 06/05/19 11:15 BP 124/73 06/05/19 11:15 Pulse Ox 98 06/05/19 11:15 Discharge Plan Discharge Patient Disposition: Home, Self-Care Condition: Stable Prescriptions: New pantoprazole 40 mg Tablet,Delayed Release (Dr/Ec) 40 mg PO DAILY 30 Days Qty: 30 RF: 0 Continued losartan 50 mg tablet 50 mg PO BID RF: 0 rosuvastatin 40 mg tablet 40 mg PO DAILY RF: 0 budesonide 0.25 mg/2 mL suspension for nebulization 2 ml INHALATION BID RF: 0 Brovana 15 mcg/2 mL solution for nebulization 2 ml INHALATION BID RF: 0 folic acid 1 mg tablet 1 mg PO DAILY RF: 0 cholecalciferol (vitamin D3) [Vitamin D3] 25 mcg (1,000 unit) Tablet 1,000 unit PO DAILY RF: 0 Discontinued clopidogrel 75 mg tablet 75 mg PO DAILY RF: 0 aspirin 325 mg tablet,delayed release (DR/EC) 325 mg PO DAILY RF: 0 Referrals: Bruce Watson MD [Primary Care Provider] - Farhad Hinojosa MD [Physician] - 4-7 days Discharge Diet: GI Soft Discharge Activity: Resume usual activity Activity Restrictions/Additional Instructions: report back to ER in case of any worsening in GI bleeding. Follow up with brand sales manager office to determine optimal timing of resuming aspirin and plavix. 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
--- NOTE | 2019-06-05 11:56 | DCPLANNER ---
Pg 2 of IM explained to and signed by pt. No questions, she states that she is ready to go. Copy provided.
[2019-06-05 13:31] VITALS: BP 124/73; PULSE 79; RESP 18; TEMP 36.8; O2SAT 98
== END 2019-06-05 15:32 | disposition home or self-care (01) | DRG 920 ==
LOC: ER 01:36 → ICU 06:06 → MEDSURG 06-03 16:12
PROVIDERS: Family Medicine; Internal Medicine; Surgery; Admitting Provider Hospitalist; Emergency Provider Emergency Medicine; Family Provider Family Medicine; PCP Family Medicine; Visit Provider Student in an Organized Health Care Education/Training Program
DX: K91.840 Postprocedural hemorrhage of a digestive system organ or structure following a digestive system procedure (principal); D62 Acute posthemorrhagic anemia; Y84.8 Other medical procedures as the cause of abnormal reaction of the patient, or of later complication, without mention of misadventure at the time of the procedure; I95.9 Hypotension, unspecified; I10 Essential (primary) hypertension; Z79.899 Other long term (current) drug therapy; I71.4 Abdominal aortic aneurysm, without rupture; Z79.02 Long term (current) use of antithrombotics/antiplatelets; Z79.82 Long term (current) use of aspirin; Z88.0 Allergy status to penicillin; J44.9 Chronic obstructive pulmonary disease, unspecified; Z87.891 Personal history of nicotine dependence; Z86.010 Personal history of colon polyps
CPT/HCPCS: 12345; 36415; 36430; 74177; 80048; 80053; 80307; 81001; 84484; 85014; 85018; 85025; 85610; 85730; 86850; 86900; 86920; 93005; 93925; 94640; 96375; 99284; C9113; J1940; J2405; J7030; J7626; P9016; Q0162; Q9967

== ENCOUNTER 2019-11-20 10:24 | Outpatient (CLI) | payer MEDICARE, OTHER, SELFPAY ==
--- NOTE | 2019-11-20 10:32 | MM_ITS ---
WS: [id number] BILATERAL DIGITAL SCREENING MAMMOGRAPHY WITH CAD CLINICAL INFORMATION: SCREENING HISTORY: Screening mammogram. No current complaints. COMPARISON: TECHNIQUE: Bilateral CC and MLO views. FINDINGS: Scattered fibroglandular densities bilaterally. No suspicious focal mass, asymmetry, calcifications, or architectural distortion. No evidence of malignancy. Stable punctate calcifications. MM/[place] [id number] IMPRESSION: BI-RADS: 2-Benign FOLLOW UP: 1 Year Follow-up Recommend return to annual screening mammography.
== END 2019-11-20 10:25 | disposition home or self-care (01) ==
LOC: RADSHAW 10:30
PROVIDERS: PCP Family Medicine; Visit Provider Family Medicine
DX: Z12.31 Encounter for screening mammogram for malignant neoplasm of breast (principal)
CPT/HCPCS: 77067

== ENCOUNTER 2020-01-04 07:39 | Outpatient (CLI) | payer MEDICARE, OTHER, SELFPAY ==
--- NOTE | 2020-01-04 08:00 | CT_ITS ---
WS: [id number] CTA ABDOMINAL AORTA WITH RUNOFF TECHNIQUE: Contrast enhanced CTA of the abdominal aorta with bilateral lower extremity runoff. Multip lanar reformatted images were obtained. MIP reformats were also reviewed. CLINICAL INFORMATION: Claudication COMPARISON: CT June 02, 2019 DLP: 1355.[address] scans at [facility] use at least one of these dose optimization techniques: automat ed exposure control; mA and/or kV adjustment per patient size (includes targeted exams where dose is matched to clinical indication); or iterative reconstruction. FINDINGS: Lobulated bilobed infrarenal abdominal aortic aneurysm with peripheral mural thrombus. This measures approximately 3.4 x 3.8 cm in maximum dimension. 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 Moderate aortic calcification. Celiac and SMA are patent. Proximal renal arteries are garcia nt. Bilateral common iliac stents. Diffuse fatty infiltration liver. Portal veins and splenic vein are patent. Small splenule. Lung base s are well aerated. Adrenal glands are normal. Normal renal parenchymal enhancement. No hydronephrosi s. Small esophageal hiatal hernia. Left DENNISE degrades images in the pelvis. Rectosigmoid constipation. Sigmoid diverticulosis. RIGHT: Right common iliac artery stent is patent. Right external and internal iliac arteries are garcia nt. Right common femoral and deep femoral arteries are patent. Moderate to severe stenosis in the rig ht common femoral artery at the femoral neck. Moderate segmental stenosis superficial femoral artery extending to the adductor hiatus. Popliteal artery is patent. Dominant 2 vessel runoff to the ankle. Poor flow in the anterior tibial artery. LEFT: Left common iliac artery is patent. Left external and internal iliac arteries are patent. Commo n femoral artery is patent. Mild segmental stenosis involving the superficial femoral artery which re steven patent. Short segment severe stenosis SFA in the mid thigh. SFA is patent to the popliteal [place] ry. Popliteal artery is patent. Dominant two-vessel runoff to the ankle. Poor flow in the anterior ti bial artery. CT/CT angio abd aorta runof [id number] IMPRESSION: 1. Lobulated bilobed infrarenal abdominal aortic aneurysm measuring 3.4 x 3.8 x 5.9 cm AP by transverse by craniocaudal with peripheral mural thrombus. This is unchanged since June 02, 2019 2. Bilateral common iliac stents are patent. 3. RIGHT: Right external iliac and common femoral arteries are patent. Severe stenosis in the right common femoral artery at the level of the femoral neck re steven patent. 4. RIGHT: Moderate segmental stenosis in the superficial femoral artery which remains patent. The popliteal artery is patent. 5. LEFT: Left external iliac artery is patent. Left common femoral artery is p atent with severe stenosis of the SFA origin which remains patent. Short segmen t severe stenosis in the SFA mid thigh. Popliteal artery is patent. 6. Dominant two-vessel runoff to both ankles in a symmetric fashion. Poor flow in the anterior tibial arteries bilaterally.
[2020-01-04 08:30] LABS: Blood Urea Nitrogen 8 mg/dL (8-23)
[2020-01-04] MEDS: iohexol 350 mg/mL 100 mL Btl IV (08:40)
== END 2020-01-04 07:40 | disposition home or self-care (01) ==
LOC: RADWPI 07:42
PROVIDERS: Radiology Neuroradiology; Family Provider Family Medicine; PCP Family Medicine; Visit Provider Internal Medicine
DX: I73.9 Peripheral vascular disease, unspecified (principal); I71.4 Abdominal aortic aneurysm, without rupture; I70.8 Atherosclerosis of other arteries
CPT/HCPCS: 75635; 82565; 84520; Q9967

== ENCOUNTER 2020-02-08 08:00 | Outpatient (CLI) | payer MEDICARE, OTHER, SELFPAY ==
[2020-02-08 08:30] LABS: Basophils % 0.7 %; Eosinophils # 0.1 10^3/uL (0.0-0.8); Eosinophils % 2.6 %; Hematocrit 39.3 % (37.0-47.0); Hemoglobin 12.3 g/dL (11.5-15.3); Lymphocytes # 0.9 10^3/uL (0.8-4.8); Lymphocytes % 16.6 %; Mean Corpuscular HGB Conc 31.3 g/dL (30.0-36.0); Mean Corpuscular Volume 95.9 fL (81-99); Mean Platelet Volume 8.3 fL (7.4-10.4); Monocytes # 0.5 10^3/uL (0.2-0.9); Monocytes % 8.8 %; Neutrophils # 3.88 10^3/uL (1.8-7.7); Neutrophils % 70.9 %; Nucleated Red Blood Cells % 0 %; Platelet Count 315 10^3/cmm (130-400); White Blood Count 5.5 10^3/uL (4.0-10.0)
[2020-02-08 08:48] LABS: Anion Gap 13.7 (5-19); Blood Urea Nitrogen 16 mg/dL (8-23); Calcium 9.2 mg/dL (8.5-10.5); Carbon Dioxide 29 mmol/L (22-29); Chloride 102 mmol/L (98-107); Glucose 114 mg/dL (65-115); Osmolality Calculated 292 mOsm/kg (285-295); Potassium 4.7 mmol/L (3.5-5.1); Sodium 140 mmol/L (136-145)
[2020-02-08 09:03] LABS: INR 0.95 (0.8-1.2)
== END 2020-02-08 08:01 | disposition home or self-care (01) ==
LOC: LAB 08:04
PROVIDERS: PCP Family Medicine; Visit Provider Internal Medicine
DX: I73.9 Peripheral vascular disease, unspecified (principal)
CPT/HCPCS: 36415; 80048; 85025; 85610; 87635

== ENCOUNTER → 2020-02-13 07:28 | Day surgery (SDC) | payer MEDICARE, OTHER, SELFPAY ==
[2020-02-12 10:32] VITALS: BMI 26.6
[2020-02-13 07:59] VITALS: BP 133/73; PULSE 71; RESP 16; TEMP 36.9; O2SAT 98
--- NOTE | 2020-02-13 11:08 | PC.NURSE ---
rescheduled appt. patient's procedure rescheduled for sunday february 16, 2020. due to high hospital census no bed available for post op recovery.
== END ==
PROVIDERS: PCP Family Medicine; Visit Provider Internal Medicine
DX: Z53.9 Procedure and treatment not carried out, unspecified reason (principal)
CPT/HCPCS: J2250; Q0163

== ENCOUNTER 2020-02-16 16:19 | Observation (INO) | payer MEDICARE, OTHER, SELFPAY ==
[2020-02-16] VITALS (8 sets, daily range): BP systolic 105–138; BP diastolic 62–75; PULSE 61–76; RESP 16–22; TEMP 36.2–36.9; O2SAT 92–99; BMI 26.6
[2020-02-16] MEDS: diphenhydrAMINE 50 mg Capsule PO (11:20)
--- NOTE | 2020-02-16 12:00 | XACV_ITS ---
Wt: 70 kg BSA: 1.80 m2 Any Known Allergies: Penicillins Gender: Female : 1950 Exam Type: Invasive Peripheral Vascular Procedure(s): Procedure Description: Peripheral Cath Diagnostic Procedure Procedure Description: Abdominal aortic angiography Procedure Description: Lower extremities' angiography Exam Priority: Routine Abdominal Diagnostic Findings Distal abdominal aorta has aneurysm. Lower Extremity Diagnostic Findings Right lower extremity findings: Right common iliac artery: Patent stent, luminal irregularities are noted. Right external iliac artery: Patent Right common femoral artery: It is a calcified vessel. Has distal 40 to 50% stenosis. Right profunda artery: Patent. Right SFA: Has diffuse mild to moderate disease. No severe stenosis noted. Right popliteal artery: Patent Right TP trunk: Patent Right anterior tibial: Patent Right posterior tibial: Patent Right peroneal artery: Patent . Left lower extremity findings: Left lower extremity findings: Left common iliac artery: Patent stent, luminal irregularities are noted. Left external iliac artery: Patent Left common femoral artery: Patent vessel Left profunda artery: Patent. Left SFA: Mid left SFA has severe 70 to 80% calcified stenosis. Left popliteal artery: Patent Left TP trunk: Patent Left anterior tibial: Patent Left posterior tibial: Patent Left peroneal artery: Patent. Conclusions Nonobstructive peripheral artery disease on the right lower extremity. Patent right common iliac stent. stents. Severe calcified left mid SFA stenosis. Normal runoff to bilateral lower extremities. Recommendations We will initiate cilostazol. If left-sided leg pain does not improve, we will bring patient back for staged revascularization of her left mid SFA.. Hemodynamic Data Phase:Rest AO : 128.0 / 56.0 ( 80.0 ) @ 8:08:00 AM 104.0 / 49.0 ( 70.0 ) @ 8:14:00 AM 98.0 / 49.0 ( 70.0 ) @ 8:22:00 AM 109.0 / 51.0 ( 73.0 ) @ 8:33:00 AM Access Site Site: Left Femoral artery Sheath Size: 6 Fr Hemost... Success: Unsuccessful Procedure Details Findings Procedure Consent Obtained. Pre-Procedure Time Out. Identified patient by full name and date of as verbalized by the patient/guarantor. Does the consent match the physician's order: Yes. Accurate & Complete Informed Consent: Yes. Inpatient/Outpatient History & Physical on Chart: Yes. If H&P is completed, is and addenduem needed: No; If yes, is the addendum complete: N/A. Visualize and Verify Site with Patient/Guarantor: N/A. Relevant Radiology Images available: N/A. The risks, benefits, and alternatives of sedation and/or procedure were discussed by physician. The patient agrees to continue. Procedure started. Correct patient, site and procedure confirmed by cath team. PERRLA. Strong, equal hand salesforce trainer bilaterally. Lungs clear x 5 lobes. IV Site on Arrival: 20 gauge in the left anticubital. IV Fluids: 0.9% NaCl at KVO. 0 mL infused prior to computer lab para professional. Pre Procedural Pulses: right dorsalis pedis was Doppled. Pre Procedural Pulses: left dorsalis pedis was 1+. Pre Procedural Pulses: bilateral posterior tibial was 1+. Pre Procedural Pulses: bilateral radial was 3+. Oxygen started at 2liters/min via nasal canula. bilateral groins was prepped with chloroprep then draped in the usual sterile fashion. Equipment: Peripheral. Cardiac Cath Pack. ACIST Manifold Kit Model BT 2000. Heparinized Saline (2 units/mL), 1000 mL bag. Physician arrived. Baseline sample Acquired. HR: 61 BPM. Physician scrubbed in. Immediate Pre-Procedure Time Out. Correct Patient: Yes; Correct Procedure: Yes; Correct Site: Yes; Correct Patient Position: Yes; Correct Supplies: Yes; Dried Flammable Prep: Yes; Blood Products Available: N/A;. Lidocaine 1% infiltrated to the left groin. Micropuncture dilator inserted over wire. Hand injection performed. Arterial access obtained with micropuncture set. Glidewire inserted. Inventory is TR Glidewire Angled .035 260cm. A CORDIS 5F UF catheter 65cm was advanced over the wire and used for Abdominal aortogram with runoff. Glidewire removed. Abdominal aortogram performed in AP @ 10 mL/sec for a total of 30 mL. Left leg runoff through the sheath 10 ml for total of 30 ml. Catheter out. Left leg runoff through the sheath 10 ml for total of 30 ml. Side port of sheath attached to Normal Saline flush at KVO to maintain patency. Dr Saunders called Dr Wright to come view films. Dr Wright arrived. MYNX closure device inserted and deployed by Dr Saunders. Lot # [id number] exp 01/02/2022. Physician scrubbed out. Post Procedure: Pulses reassessed and unchanged. PERRLA. Strong, equal hand salesforce trainer bilaterally. No VTE prophylaxis required. Medication's Wasted: Lidocaine 1% = 8 mL. Medication's Wasted: Heparin = 4000 units. Medication's Wasted: Other = versed 2 mg. Total IV fluids: 50 mL. Post-op diagnosis: severe mid left SFA stenosis, bilateral 3 vessel runoff. Complications: none. Estimated blood loss: 5mL-10mL. Contrast type used: Visipaque 320 mgI/mL, 500 mL bottle. Procedure completed. Patient transferred by bed to 1st floor. Vital chart was stopped. Procedure Medications Start: 1:51 PM Stop: 1:51 PM Medication: Versed Amount: 1 mg Route: I.V. Start: 1:51 PM Stop: 1:51 PM Medication: Fentanyl Amount: 50 mcg Route: I.V. Start: 2:04 PM Stop: 2:04 PM Medication: Versed Amount: 1 mg Route: I.V. Start: 2:40 PM Stop: 2:40 PM Medication: Fentanyl Amount: 50 mcg Route: I.V. History/Risk Factors Hypertension: Yes Dyslipidemia: Yes Peripheral Arterial Disease (PAD): Yes Obesity: No Renal Disease: No Tobacco Use: Former Prior Interventions PCI: Yes CABG: No Valve Surgery: No Report Signatures Finalized by Herson Saunders MD on 02/19/2020 05:42 PM
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
--- NOTE | 2020-02-16 15:06 | SUR.PHASEI ---
1500 Pt transferred to OPS Prep 8 via stretcher waiting for bed placement on CSU in Room 102. VSS. Left groin site clear with no bleeding or hematoma noted. Pt resting comfortably. Call light within reach.
--- NOTE | 2020-02-16 15:17 | SUR.PHASEI ---
1515 VS remain stable. Left groin without bleeding or hematoma noted.
--- NOTE | 2020-02-16 15:36 | PC.NURSE ---
1530: LEFT GROIN SOFT ON PALPATION, NO BLEEDING NOTED. PATIENT DENIES PAIN AT THIS TIME.
--- NOTE | 2020-02-16 15:50 | PC.NURSE ---
LEFT GROIN SOFT ON PALPATION, PT DENIES PAIN. VSS.
--- NOTE | 2020-02-16 16:15 | PC.NURSE ---
1600: PATIENT TAKEN TO CSU, BEDSIDE REPORT GIVEN TO MEY ZAVALA. LEFT GROIN AND SURROUNDING AREA WAS SOFT ON PALPATION, PEDAL PULSE PALPABLE DISTAL TO CATH SITE. PATIENT WAS AWAKE AND ALERT, VSS.
--- NOTE | 2020-02-16 19:59 | PC.NURSE ---
Patient wheeled out by wheelchair to private car by staff. Vitals are stable and groin is clean dry and intact. NO hematoma noted. discharge packet given to patient and gone over with by staff. All personal belongings in hand.
--- NOTE | 2020-02-19 09:03 | PC.RESP ---
PULMONARY REHAB INFORMATION SENT TO PATIENT.
--- NOTE | 2020-02-19 09:05 | PC.RESP ---
PULMONARY REHAB INFORMATION SENT TO PATIENT.
== END 2020-02-16 19:59 | disposition home or self-care (01) ==
LOC: CSU 16:19
PROVIDERS: Admitting Provider Internal Medicine; PCP Family Medicine; Visit Provider Internal Medicine
DX: I73.9 Peripheral vascular disease, unspecified (principal); I71.4 Abdominal aortic aneurysm, without rupture; D64.9 Anemia, unspecified; J44.9 Chronic obstructive pulmonary disease, unspecified; K57.90 Diverticulosis of intestine, part unspecified, without perforation or abscess without bleeding; E78.5 Hyperlipidemia, unspecified; I10 Essential (primary) hypertension; M81.0 Age-related osteoporosis without current pathological fracture; Z87.891 Personal history of nicotine dependence; Z96.642 Presence of left artificial hip joint
CPT/HCPCS: 12345; 36415; 75625; 75716; C1760; C1769; C1887; C1894; G0378; J1644; J2250; J3010; J7030; Q0163; Q9967

== ENCOUNTER → 2020-02-21 09:44 | Outpatient (BNVA) | payer MEDICARE, OTHER, SELFPAY | PROVIDERS: PCP Family Medicine; Visit Provider Nurse Practitioner Family | DX: I73.9 Peripheral vascular disease, unspecified (principal) | CPT/HCPCS: 80048 ==

== ENCOUNTER 2020-10-23 13:18 | Outpatient (CLI) | payer MEDICARE, OTHER, SELFPAY ==
--- NOTE | 2020-10-23 13:23 | CT_ITS ---
WS: [id number] LDCT LUNG CANCER SCREENING TECHNIQUE: Noncontrast CT of the chest with coronal and sagittal reformatted images. CLINICAL INFORMATION: HX OF TOBACCO USE COMPARISON: CT chest DLP: 57.35 mGy.cm DIvol: 1.[address] scans at [facility] use at least one of these dose optimization techniques: automat ed exposure control; mA and/or kV adjustment per patient size (includes targeted exams where dose is matched to clinical indication); or iterative reconstruction. FINDINGS: Moderate to advanced chronic emphysematous changes. No acute pulmonary infiltrates. Aortic calcification. Ectatic ascending thoracic aorta measuring 3.8 cm in maximum dimension. Coronar y calcification. Small esophageal hiatal hernia. Adrenal glands are normal. Fibrotic appearing lesion in right lung apex measuring 7.9 mm stable since 2016. Subsegmental atelect asis right lower lobe. A few hazy groundglass opacities in the right upper lobe likely inflammatory. CT/CT lung screening [id number] IMPRESSION: LUNG-RADS: 2-Benign Appearance or Behavior FOLLOW UP: 12 Month: Continue annual screening with LDCT
--- NOTE | 2020-10-23 14:21 | XR_ITS ---
WS: [id number] Bone mineral density performed on a [employer] IDXA, 10/23/2020 Clinical data: OSTEOPOROSIS Comparison study: DEXA scan, 10/19/2018. Findings: The first 4 lumbar vertebral bodies demonstrated the bone mineral density of 1.193 g/cm2 for a young adult T score of 0.1. Measurement of the right hip reveals the bone mineral density of 0.650 g/sq cm for young adult T scor e of -2.8. XR/XR DEXA axial skeleton* [id number] Impression: 1. The bone mineral density of the lumbar spine has improved slightly, normal s tudy. 2. The bone mineral density of the right hip has diminished, osteoporosis.
== END 2020-10-23 13:19 | disposition home or self-care (01) ==
LOC: CT 13:20
PROVIDERS: PCP Family Medicine; Visit Provider Family Medicine
DX: Z12.2 Encounter for screening for malignant neoplasm of respiratory organs (principal); Z87.891 Personal history of nicotine dependence; M81.0 Age-related osteoporosis without current pathological fracture
CPT/HCPCS: 71271; 77080

== ENCOUNTER 2021-01-15 09:53 | Outpatient (CLI) | payer MEDICARE, OTHER, SELFPAY ==
[2021-01-15 10:02] VITALS: BP 134/78; PULSE 80; RESP 18; TEMP 36.8; O2SAT 99
[2021-01-15] MEDS: denosumab 60 mg SDV SUBCUT (10:09)
[2021-01-15 10:21] VITALS: BP 112/74; PULSE 78; RESP 18; TEMP 36.3; O2SAT 95
== END 2021-01-15 09:54 | disposition home or self-care (01) ==
LOC: ONCMED 09:55
PROVIDERS: PCP Family Medicine; Visit Provider Family Medicine
DX: M81.0 Age-related osteoporosis without current pathological fracture (principal)
CPT/HCPCS: 96372; J0897

== ENCOUNTER → 2021-07-08 13:52 | Outpatient (BNVA) | payer MEDICARE, OTHER, SELFPAY | PROVIDERS: PCP Family Medicine; Visit Provider Internal Medicine Cardiovascular Disease | DX: Z09 Encounter for follow-up examination after completed treatment for conditions other than malignant neoplasm (principal); I73.9 Peripheral vascular disease, unspecified; F17.201 Nicotine dependence, unspecified, in remission; I10 Essential (primary) hypertension | CPT/HCPCS: 99213 ==

== ENCOUNTER 2021-07-22 08:56 | Outpatient (CLI) | payer MEDICARE, OTHER, SELFPAY ==
[2021-07-22 09:54] LABS: Albumin Level 4.2 g/dL (3.5-5.2); Calcium 9.1 mg/dL (8.5-10.5)
[2021-07-22 10:05] VITALS: BP 132/90; PULSE 80; RESP 18; TEMP 36.6; O2SAT 98
[2021-07-22] MEDS: denosumab 60 mg SDV SUBCUT (10:08)
[2021-07-22 10:10] LABS: 25 Hydroxy Vitamin D 40 ng/mL (30-100)
[2021-07-22 10:29] VITALS: BP 131/89; PULSE 78; RESP 18; TEMP 36.5; O2SAT 96
== END 2021-07-22 08:57 | disposition home or self-care (01) ==
PROVIDERS: PCP Family Medicine; Referring Provider Family Medicine; Visit Provider Family Medicine
DX: M81.0 Age-related osteoporosis without current pathological fracture (principal); Z79.899 Other long term (current) drug therapy
CPT/HCPCS: 36415; 82040; 82306; 82310; 96372; J0897

== ENCOUNTER 2021-09-05 10:42 | Observation (INO) | payer MEDICARE, OTHER, SELFPAY ==
[2021-09-03 08:40] LABS: Basophils # 0.1 10^3/uL (0.0-0.1); Basophils % 0.9 %; Eosinophils # 0.2 10^3/uL (0.0-0.8); Eosinophils % 3.5 %; Hematocrit 39.6 % (37.0-47.0); Hemoglobin 12.4 g/dL (11.5-15.3); Lymphocytes # 1.1 10^3/uL (0.8-4.8); Lymphocytes % 18.7 %; Mean Corpuscular HGB Conc 31.3 g/dL (30.0-36.0); Mean Corpuscular Hemoglobin 29.7 pg (28.0-34.0); Mean Corpuscular Volume 94.7 fl (81-99); Mean Platelet Volume 8.5 fL (7.4-10.4); Monocytes # 0.5 10^3/uL (0.2-0.9); Monocytes % 8.9 %; Neutrophils # 3.86 10^3/uL (1.8-7.7); Neutrophils % 67.6 %; Nucleated Red Blood Cells % 0 %; Platelet Count 286 10^3/cmm (130-400); Red Blood Count 4.18 10^6/uL (4.1-5.3); Red Cell Distribution Width 12.8 % (12.1-15.1); White Blood Count 5.7 10^3/uL (4.0-10.0)
[2021-09-03 08:42] LABS: INR 0.93 (0.83-1.21); Prothrombin Time (Patient) 12.8 Seconds (12.0-15.1)
[2021-09-03 08:47] LABS: Blood Urea Nitrogen 13 mg/dL (8-23); Calcium 9.3 mg/dL (8.5-10.5); Carbon Dioxide 28 mmol/L (22-29); Chloride 98 mmol/L (98-107); Glucose 119 mg/dL (65-115); Osmolality Calculated 283 mOsm/kg (285-295); Sodium 136 mmol/L (136-145)
[2021-09-05] VITALS (19 sets, daily range): BP systolic 116–154; BP diastolic 58–92; PULSE 61–77; RESP 14–25; TEMP 36.4–36.8; O2SAT 89–99; BMI 27.3
--- NOTE | 2021-09-05 06:00 | XACV_ITS ---
Ht: 163 cm Wt: 72 kg BSA: 1.82 m2 Any Known Allergies: Penicillins Gender: Female : 1950 Exam Type: Invasive Peripheral Vascular Procedure(s): Procedure Description: Peripheral Cath Diagnostic Procedure Procedure Description: Abdominal aortic angiography Procedure Description: Lower extremities' angiography Exam Priority: Routine Abdominal Diagnostic Findings Aneurysmal aorta is seen. Lower Extremity Diagnostic Findings Left common iliac artery: Significant in-stent restenosis of ostial left iliac artery stent. Left external iliac artery: Severe, calcified 80 to 90% stenosis Left common femoral artery: Severe calcified stenosis Left profunda artery: Patent Left SFA artery: Ostial, severe 70 to 80% stenosis. Mid SFA has serial severe 80 to 90% calcified lesions. Left popliteal artery: Patent Left TP segment: Patent. Left anterior tibial artery: Occluded Left peroneal artery: Patent Left posterior tibial artery: Patent . Right common iliac artery: Patent. Has prior stent that is open. Right external iliac artery: Severe calcified 90% stenosis Right common femoral artery: Severe serial, calcified 70 to 80% stenosis Right profunda artery: Patent Right SFA: Proximal vessel has severe 70 to 80% stenosis Right popliteal artery: Patent Right TP segment: Patent Right anterior tibial artery: Patent mid segment Right peroneal artery: Patent Right posterior tibial artery: Patent. Conclusions Severe bilateral lower extremity stenosis. Aneurysmal abdominal aorta. Recommendations Patient will be referred to vascular surgery evaluation as has extensive bilateral lower extremity peripheral artery disease. Hemodynamic Data Phase:Rest AO : 125.0 / 55.0 ( 80.0 ) @ 8:41:00 AM Access Site Site: Right Femoral artery Sheath Size: 6 Fr Hemost... Method: Manual Compression Hemost... Success: Successful Procedure Details Findings Procedure Consent Obtained. Admit Source: Out Patient. Pre-Procedure Time Out. Identified patient by full name and date of as verbalized by the patient/guarantor. Does the consent match the physician's order: Yes. Accurate & Complete Informed Consent: Yes. Inpatient/Outpatient History & Physical on Chart: Yes. If H&P is completed, is and addenduem needed: No; If yes, is the addendum complete: No. Visualize and Verify Site with Patient/Guarantor: N/A. Relevant Radiology Images available: N/A. The risks, benefits, and alternatives of sedation and/or procedure were discussed by physician. The patient agrees to continue. Procedure started. PERRLA. Strong, equal hand comber fixer bilaterally. Lungs clear x 5 lobes. IV Site on Arrival: 20 gauge in the left anticubital. IV Fluids: 0.9% NaCl at KVO. 0 mL infused prior to chemical laboratory assistant. Pre Procedural Pulses: bilateral dorsalis pedis was Doppled. Pre Procedural Pulses: bilateral posterior tibial was Doppled. Oxygen started at 2liters/min via nasal canula. bilateral groins was prepped with chloroprep then draped in the usual sterile fashion. Physician notified. Baseline sample Acquired. HR: 77 BPM. Physician arrived. Physician scrubbed in. Immediate Pre-Procedure Time Out. Correct Patient: Yes; Correct Procedure: Yes; Correct Site: Yes; Correct Patient Position: Yes; Correct Supplies: Yes; Dried Flammable Prep: Yes; Blood Products Available: No;. Ultrasound obtained to assist with arterial access. Lidocaine 1% infiltrated to the right groin. Arterial access obtained with micropuncture set. 5Fr UF catheter inserted in over glidewire. Glidewire out. Pigtail postioned above the bifurcation of the iliacs. Aortagram performed @ 10 mL/sec for a total of 30 mL with runoff of left lower extremity. Catheter removed over the glide wire. Glidewire out. Sheath injected in Right common femoral artery and runoff performed. Post Procedure: Pulses reassessed and unchanged. A 16Fr moses catheter was inserted without resistance maintaining sterile technique. Bag to gravity with clear urine returning. PERRLA. Strong, equal hand comber fixer bilaterally. No VTE prophylaxis required. Medication's Wasted: Heparin = 1000unit. Total IV fluids: 30 mL. Complications: None. Estimated blood loss: 5mL-10mL. Responsiveness - Normal response to verbal stimuli; alert and oriented, PERRLA. Airway - Unaffected, no intervention required; spontaneous ventilation. Circulation: W/N/L, pulses unchanged. Nausea/Vomiting: No. Post-op diagnosis: Severe bilateral peripheral arterial disease. A Manual Compression was successful obtaining hemostatsis at the Right Femoral artery insertion site. Procedure completed. Patient transferred by stretcher to CPRU. Procedure Medications Start: 7:19 AM Stop: 7:19 AM Medication: Versed Amount: 1 mg Route: I.V. Start: 7:19 AM Stop: 7:19 AM Medication: Fentanyl Amount: 50 mcg Route: I.V. Start: 7:45 AM Stop: 7:45 AM Medication: Versed Amount: 1 mg Route: I.V. Start: 7:46 AM Stop: 7:46 AM Medication: Fentanyl Amount: 50 mcg Route: I.V. I, the attending physician, have reviewed and verified all procedure medications. Yes, all medications given per verbal order History/Risk Factors Hypertension: Yes Dyslipidemia: Yes Peripheral Arterial Disease (PAD): Yes Obesity: No Renal Disease: No Tobacco Use: Current/Recent(w/in 1 year) Prior Interventions PCI: No CABG: No Valve Surgery: No Report Signatures Finalized by Herson Saunders MD on 09/17/2021 11:00 AM
[2021-09-05] MEDS: diphenhydrAMINE 50 mg Capsule PO (07:05)
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
--- NOTE | 2021-09-05 12:45 | ECG_ITS ---
[facility] Test Date: 2021-09-05 Pat Name: Emy Mendieta Department: Room: 259 Gender: Female Knotter Hand: : 1950 Requested By: Herson Saunders Order Number: [id number] Jean MD: Herson Saunders M.D. Measurements Intervals [place] Rate: 72 P: 66 IL: 139 QRS: 78 QRSD: 85 T: 69 QT: 402 QTc: 440 Interpretive Statements SINUS RHYTHM LOW QRS VOLTAGE [QRS DEFLECTION < 0.5/1.0 mV IN LIMB/CHEST LEADS] Compared to ECG 06/02/2019 03:55:44 No significant changes Electronically Signed On 09-05-2021 22:37:59 CDT by Herson Saunders M.D. [id number] f
--- NOTE | 2021-09-05 13:46 | PC.NURSE ---
Pt is up ad pierre, sitting in the chair. denies any pain or discomfort on her chest or right groin area.
== END 2021-09-05 16:12 | disposition home or self-care (01) ==
LOC: MEDSURG 10:52
PROVIDERS: Admitting Provider Internal Medicine; PCP Family Medicine; Visit Provider Internal Medicine
DX: I70.213 Atherosclerosis of native arteries of extremities with intermittent claudication, bilateral legs (principal); I10 Essential (primary) hypertension; I25.10 Atherosclerotic heart disease of native coronary artery without angina pectoris; E78.5 Hyperlipidemia, unspecified; Z79.82 Long term (current) use of aspirin; J44.9 Chronic obstructive pulmonary disease, unspecified; Z80.0 Family history of malignant neoplasm of digestive organs; M81.0 Age-related osteoporosis without current pathological fracture; Z87.891 Personal history of nicotine dependence
CPT/HCPCS: 36415; 75625; 75716; 80048; 85025; 85610; 93005; 99152; 99153; C1769; C1887; C1894; G0378; J1644; J2250; J3010; J3490; J7030; Q0163; Q9967

== ENCOUNTER → 2021-09-15 09:24 | Outpatient (BNVA) | payer MEDICARE, OTHER, SELFPAY | PROVIDERS: PCP Family Medicine; Visit Provider Nurse Practitioner Family | DX: Z09 Encounter for follow-up examination after completed treatment for conditions other than malignant neoplasm (principal); I73.9 Peripheral vascular disease, unspecified | CPT/HCPCS: 36415; 80048; 99214 ==

== ENCOUNTER → 2021-10-30 12:09 | Outpatient (BNVA) | payer MEDICARE, OTHER, SELFPAY | PROVIDERS: PCP Family Medicine; Visit Provider Internal Medicine | DX: I73.9 Peripheral vascular disease, unspecified (principal); E78.5 Hyperlipidemia, unspecified; I10 Essential (primary) hypertension; I71.4 Abdominal aortic aneurysm, without rupture; Z87.891 Personal history of nicotine dependence | CPT/HCPCS: 99214 ==

== ENCOUNTER 2021-12-15 10:34 | Outpatient (CLI) | payer MEDICARE, OTHER, SELFPAY ==
--- NOTE | 2021-12-15 10:46 | MM_ITS ---
WS: [id number] BILATERAL SCREENING DIGITAL TOMOSYNTHESIS MAMMOGRAM WITH CAD HISTORY: SCREENING COMPARISON: 11/20/2019 and 10/19/2018 Bilateral CC and MLO views with tomosynthesis and synthetic mammography submitted. Computer aided det ection analyzed. Breast composition: There are scattered areas of fibroglandular density. No suspicious masses, microc alcifications or architectural distortion. Benign calcifications in each breast. MM/[place] [id number] IMPRESSION: BI-RADS: 2-Benign FOLLOW UP: 1 Year Follow-up
== END 2021-12-15 10:35 | disposition home or self-care (01) ==
LOC: RAD 10:34
PROVIDERS: PCP Family Medicine; Visit Provider Family Medicine
DX: Z12.31 Encounter for screening mammogram for malignant neoplasm of breast (principal)
CPT/HCPCS: 77063; 77067

== ENCOUNTER 2022-02-04 09:59 | Outpatient (CLI) | payer MEDICARE, OTHER, SELFPAY ==
[2022-02-04 10:34] VITALS: BP 133/82; PULSE 77; RESP 18; TEMP 36.8; O2SAT 96
[2022-02-04] MEDS: denosumab 60 mg SDV SUBCUT (10:49)
[2022-02-04 10:53] VITALS: BP 130/72; PULSE 77; RESP 18; TEMP 36.8; O2SAT 99
== END 2022-02-04 10:00 | disposition home or self-care (01) ==
PROVIDERS: PCP Family Medicine; Visit Provider Family Medicine
DX: M81.0 Age-related osteoporosis without current pathological fracture (principal)
CPT/HCPCS: 96372; J0897

== ENCOUNTER → 2022-04-30 15:35 | Outpatient (BNVA) | payer MEDICARE, OTHER, SELFPAY | PROVIDERS: PCP Family Medicine; Visit Provider Internal Medicine | DX: I20.0 Unstable angina (principal); I73.9 Peripheral vascular disease, unspecified; R06.02 Shortness of breath; I10 Essential (primary) hypertension; F17.201 Nicotine dependence, unspecified, in remission; E78.5 Hyperlipidemia, unspecified; I71.43 Infrarenal abdominal aortic aneurysm, without rupture; Z79.82 Long term (current) use of aspirin | CPT/HCPCS: 99214 ==

== ENCOUNTER 2022-05-14 06:00 | Outpatient (CLI) | payer MEDICARE, OTHER, SELFPAY ==
[2022-05-13 10:33] VITALS: BMI 25.7
[2022-05-14] VITALS (28 sets, daily range): BP systolic 94–187; BP diastolic 55–114; PULSE 66–98; RESP 16–24; TEMP 36.9; O2SAT 93–99
--- NOTE | 2022-05-14 06:00 | XACV_ITS ---
Exam Room: 2 Ht: 163 cm Wt: 68 kg BSA: 1.77 m2 Gender: Female : 1950 Any Known Allergies: Penicillins Exam Priority: Routine Procedure(s): Procedure Description: Diagnostic procedure Procedure Description: Left Heart Catheterization Procedure Description: Right Heart Catheterization Procedure Description: Left ventriculography Procedure Description: Coronary Angiography Diagnostic Cath Status: Elective Diagnostic Findings * INDICATION: 71-year-old woman with past medical history of coronary artery disease, PAD with recent vascular surgical procedure performed in [place] who has started noticing chest pain symptoms in the last 2 to 3 months. It has been worsening over time. Plan for right and left heart cath. * Left Main is a calcified vessel. Has mild luminal irregularities.. * LAD is a medium sized vessel. Mid Left Anterior Descending: severe, heavily calcified 90% stenosis, ZAYRA: 3 flow. * Proximal Right Coronary Artery: chronic total occlusion, ZAYRA: 0 flow. PDA/PLV reconstitute via left to right collaterals. * Ascending aorta is heavily calcified. * Distal Circumflex: moderate 50% stenosis, ZAYRA: 3 flow. * Coronary angiography shows right dominance. Conclusions 1. Severe, heavily calcified mid LAD stenosis. 2. Chronic total occlusion of RCA 3. . 4. Patient does have heavily calcified aorta 5. noted on 6. angiogram. 7. . 8. Normal right and left-sided cardiac pressures. 9. Normal left ventricular systolic function. Ejection fraction of 65%. Recommendations * We will refer to CT surgery for CABG. If she is not a good surgical candidate, we will proceed with PCI of mid LAD with arthrectomy. CT surgery team at [facility] aware about the patient.. * Continue current medications. We will add sublingual nitroglycerin. ER warning signs and symptoms discussed discussed with patient. * Cardiology follow-up in 7 to 10 days. Interventional RX Recommendation: CABG Diagnostic RX Recommendation: CABG Ventriculography Ejection Fraction: 65.0 % Pressures Phase:Rest AO : 158 / 82 ( 108 ) @ 8:17:00 AM 129 / 79 ( 102 ) @ 8:20:00 AM 174 / 75 ( 119 ) @ 8:30:00 AM 174 / 76 ( 119 ) @ 8:30:00 AM LV : 165 / -8 / 14 @ 8:29:00 AM 163 / 0 / 18 @ 8:30:00 AM 168 / 0 / 18 @ 8:30:00 AM RV : 39 / 0 / 7 @ 7:58:00 AM PA : 38 / 13 ( 25 ) @ 7:56:00 AM RA : a wave = 13 v wave = 8 mean = 7 @ 7:58:00 AM PCW : a wave = 13 v wave = 16 mean = 13 @ 7:57:00 AM O2 Content Phase:Rest PA : O2 Content O2: 64.0 @ 8:20:00 AM Saturations Phase:Rest AO : 96 @ 8:17:00 AM PA : 64 @ 8:20:00 AM Cardiac Output Phase:Rest Pepe : 4 @ 8:41:14 AM Pepe Cardiac Index: 2 @ 8:41:14 AM Flow Phase:Rest Qp : 4 @ 8:41:14 AM Qs : 4 @ 8:41:14 AM Valves Phase:DefaultPhase AV : 0.0 @ 8:41:14 AM 0.0 @ 8:41:14 AM AV Mean Gradient: 0.0 @ 8:41:14 AM 0.0 @ 8:41:14 AM AV Flow: 373 @ 8:41:14 AM Clinical Evaluation EBL: 5mL-10mL Procedural Details Procedure Consent Obtained. Pre-Procedure Time Out. Identified patient by full name and date of as verbalized by the patient/guarantor. Does the consent match the physician's order: Yes. Accurate & Complete Informed Consent: Yes. Inpatient/Outpatient History & Physical on Chart: Yes. If H&P is completed, is and addenduem needed: No. Visualize and Verify Site with Patient/Guarantor: N/A. Relevant Radiology Images available: Yes. The risks, benefits, and alternatives of sedation and/or procedure were discussed by physician. The patient agrees to continue. Equipment: 6F - Femoral. Cardiac Cath Pack. ACIST Manifold Kit Model BT 2000. Heparinized Saline (2 units/mL), 1000 mL bag. Kit, Micropuncture. Patient's family in CPRU room 3. Dr. Saunders will update at this completion of the case. [facility] Clinical Fraility Score: 3: Managing Well. Corporate Human Resources Manager Indications: New Onset Angina/CORNELL. Chest Pain Symptom Assessment: Typical Angina Symptoms. Cardiovascular Instability: No. Procedure started. Correct patient, site and procedure confirmed by cath team. PERRLA. Strong, equal hand wheel of fortune dealer bilaterally. Lungs clear x 5 lobes. IV Site on Arrival: 18 gauge in the left anticubital. IV Site on Arrival: 20 gauge in the right anticubital. IV Fluids: 0.9% NaCl at KVO. 0 mL infused prior to forestry laborer. Pre Procedural Pulses: bilateral dorsalis pedis was Doppled. Pre Procedural Pulses: bilateral posterior tibial was Doppled. Pre Procedural Pulses: right radial was Absent. Pre Procedural Pulses: left radial was 1+. Patient on room air for RHC. right groin was prepped with chloroprep then draped in the usual sterile fashion. right radial was prepped with chloroprep then draped in the usual sterile fashion. left radial was prepped with chloroprep then draped in the usual sterile fashion. left groin was prepped with chloroprep then draped in the usual sterile fashion. Baseline sample Acquired. HR: 71 BPM. Physician notified. Physician arrived. Physician scrubbed in. Immediate Pre-Procedure Time Out. Correct Patient: Yes; Correct Procedure: Yes; Correct Site: Yes; Correct Patient Position: Yes; Correct Supplies: Yes; Dried Flammable Prep: Yes; Blood Products Available: N/A. Lidocaine 1% infiltrated to the right brachial. Existing 20g PIV out, 6 fr glidesheath in. [place] inserted. Oximetry samples were obtained. Normal venous range: 60-85%. Normal arterial range: 95-100%. Pressure measurements obtained. Rockwood-Danyel out. Lidocaine 1% infiltrated to the left radial. Arterial access obtained, wire unable to cross. An attempt to gain access to the left radial artery was unsuccessful. TR Band was placed to stop the bleeding. Lidocaine 1% infiltrated to the right groin. Arterial access obtained with micropuncture set using ultrasound guidance. A 5 uruguayan JL4 catheter in over the standard J wire. Sats drawn and sent with respiratory therapy. Multiple views taken of left coronary artery. Catheter removed over the exchange J wire. A 5 uruguayan JR4 catheter in over the exchange J wire. Multiple views taken of right coronary artery. Catheter removed over the exchange J wire. A 5 uruguayan Angled Pig catheter in over the exchange J wire. EDP Sample taken: LV 165/-9,14; HR: 75 BPM; SpO2: 96%. LV gram performed in MARTINEZ @ 10 mL/second for a total of 30 mL. EDP Sample taken: LV 163/-1,18; HR: 75 BPM; SpO2: 94%. Pullback taken: LV 168/-1,18; AO 174/75(119); Mean: 0mmHg, Peak to Peak: 0mmHg, SEP: 10sec/min; HR: 75 BPM; SpO2: 95%. Catheter removed over the exchange J wire. Dr. Saunders scrubbed out. A Manual Compression was successful obtaining hemostatsis at the Right Brachial Vein insertion site. Right Brachial Sheath removed and manual pressure held until hemostasis was achieved. Sterile 4x4 and Op-site applied to the puncture site. No oozing or hematoma noted. Post sheath removal instructions were given and the patient verbalized understanding. The 6 fr femoral sheath in the right will be pulled in CPRU. Post Procedure: Pulses reassessed and unchanged. PERRLA. Strong, equal hand wheel of fortune dealer bilaterally. No VTE prophylaxis required. Medication's Wasted: Lidocaine 1% = 1 mL. Medication's Wasted: Heparin = 1000 Units. Medication's Wasted: Other = Fentnyl 75 mcg. Total IV fluids: 50 mL. Post-op diagnosis: Severe Multivessel CAD. Complications: none. Estimated blood loss: 5mL-10mL. Responsiveness - Normal response to verbal stimuli; alert and oriented, PERRLA. Airway - Unaffected, no intervention required; spontaneous ventilation. Circulation: W/N/L, pulses unchanged. Nausea/Vomiting: No. Procedure completed. Patient transferred by bed to CPRU. Vital chart was stopped. Access Site Site: Right Brachial Vein Sheath Size: 6 Fr Hemostasis Method: Manual Compression Hemostasis Success: Successful Site: Right Femoral artery Sheath Size: 6 Fr Hemostasis Success: Unsuccessful Procedure Medications Start: 7:49 AM Stop: 7:49 AM Medication: Versed Amount: 1 mg Route: I.V. Start: 7:49 AM Stop: 7:49 AM Medication: Fentanyl Amount: 25 mcg Route: I.V. Start: 8:07 AM Stop: 8:07 AM Medication: Versed Amount: 1 mg Route: I.V. I, the attending physician, have reviewed and verified all procedure medications. Yes, all medications given per verbal order History/Risk Factors Hypertension: Yes Dyslipidemia: Yes Peripheral Arterial Disease (PAD): Yes Myocardial Infarction (PR): No Obesity: No Renal Disease: No Tobacco Use: Former Prior Interventions PCI: No CABG: No Valve Surgery: No Report Signatures Finalized by Herson Saunders MD on 05/19/2022 04:50 PM
[2022-05-14 06:34] LABS: Basophils # 0.1 10^3/uL (0.0-0.1); Basophils % 0.7 %; Eosinophils # 0.3 10^3/uL (0.0-0.8); Eosinophils % 3.1 %; Hematocrit 33.1 % (37.0-47.0); Hemoglobin 10.3 g/dL (11.5-15.3); Lymphocytes # 1.3 10^3/uL (0.8-4.8); Lymphocytes % 15.7 %; Mean Corpuscular HGB Conc 31.1 g/dL (30.0-36.0); Mean Corpuscular Hemoglobin 28.9 pg (28.0-34.0); Mean Corpuscular Volume 92.7 fl (81-99); Mean Platelet Volume 8.7 fL (7.4-10.4); Monocytes # 0.6 10^3/uL (0.2-0.9); Monocytes % 7.5 %; Neutrophils # 6.08 10^3/uL (1.8-7.7); Neutrophils % 72.6 %; Nucleated Red Blood Cells % 0 %; Platelet Count 301 10^3/cmm (130-400); Red Blood Count 3.57 10^6/uL (4.1-5.3); Red Cell Distribution Width 13.2 % (12.1-15.1); White Blood Count 8.4 10^3/uL (4.0-10.0)
[2022-05-14] MEDS: diphenhydrAMINE 50 mg Capsule PO (06:47)
[2022-05-14 06:58] LABS: Anion Gap 14.2 (5-19); Blood Urea Nitrogen 29 mg/dL (8-23); Calcium 8.9 mg/dL (8.5-10.5); Carbon Dioxide 26 mmol/L (22-29); Chloride 103 mmol/L (98-107); Creatinine Clr Calc Pharmacy 59.3581; Glucose 101 mg/dL (65-115); Osmolality Calculated 296 mOsm/kg (285-295); Potassium 3.2 mmol/L (3.5-5.1); Sodium 140 mmol/L (136-145)
--- NOTE | 2022-05-14 07:48 | W.PM.OPSUD ---
Surgery/Procedure H&P Update DATE OF PROCEDURE: May 14, 2022 DATE H&P PERFORMED: 04/30/22 H&P UPDATE INFORMATION: I have reviewed H&P completed within last 30 days, I have examined patient prior to procedure and No changes to prior documentation PREOP DIAGNOSIS: Worsening angina/dyspnea on exertion PRIMARY INDICATION FOR PROCEDURE: Worsening angina/dyspnea on exertion PLANNED PROCEDURE: Operation Date: 05/14/22 07:00 Proposed Procedures p Right and Left Heart Cath 58710,I20.0(Bilateral) - Herson Saunders M.D Possible percutaneous coronary intervention PATIENT REASSESSED PRIOR TO SEDATION, WITH NO CHANGE NOTED: Yes PHYSICAL EXAM: alert, oriented x 3, clear to auscultation bilaterally and regular rate & rhythm AIRWAY EVAL/ANESTHESIA PLAN: normal airway, ASA III, Local Anesthesia, Risks, benefits & alternatives of sedation and/or procedure discussed and Patient agrees to continue as planned ADDITIONAL INFORMATION: Moderate sedation
[2022-05-14 08:28] LABS: Alveolar-Arterial Oxygen Gradi 7.8 mmHg (5-10); Blood Gas Allen Test Pos; Blood Gas Sample Site Not specified; Blood Gas Sample Type Arterial; Carboxyhemoglobin 2.2 %THgb (0.4-20.1); HGB O2 Sat 61.7 % (95-100); Methemoglobin 1.3 % (0.4-1.5); Total Hemoglobin < 4.5 g/dL (12-16)
[2022-05-14 08:31] LABS: Blood Gas Operator Identificat PA
[2022-05-14 08:33] LABS: Arterial Blood Gas Hematocrit 26.1 % (37-47); Blood Gas Allen Test Pos; Blood Gas Sample Site Not specified; Blood Gas Sample Type Arterial; Carboxyhemoglobin 1.6 %THgb (0.4-20.1); HGB O2 Sat 94.1 % (95-100); Methemoglobin 0.7 % (0.4-1.5); Total Hemoglobin 8.5 g/dL (12-16)
[2022-05-14 08:34] LABS: Blood Gas Operator Identificat AO
--- NOTE | 2022-05-14 08:45 | PC.NURSE ---
Received pt from [facility]. Femoral sheath sutured in place and sheath able to be pull when ready. Pt complains of no pain. Pt and family educated on restrictions throughout recovery and both acknowledged understanding. Nurse will educated throughout recovery. Pt to be down for 4 hrs after sheath pull. Pt stated understanding as well. Pt placed on monitor and will be monitored per protocol.
[2022-05-14 09:26] LABS: Oxygen Device ROOMAIR
[2022-05-14 09:26] LABS: Oxygen Device ROOM AIR
--- NOTE | 2022-05-14 10:20 | PC.NURSE ---
Successful sheath pull, dressing in place. Pt and family at bedside educated on restrictions again. All stated understanding.
[2022-05-14] MEDS: hyDRALAzine 20 mg/mL INJ 1 mL IVP (12:39)
--- NOTE | 2022-05-14 13:54 | PC.NURSE ---
Nausea/Emesis After ambulation to bathroom, pt became nauseated with emesis. Dr. Saunders notified and received telephone orders for ondansetron 4mg IVP x 1. RBTO.
[2022-05-14] MEDS: ondansetron 2 mg/ML SDV 2 mL 4 MG IVP (13:57)
--- NOTE | 2022-05-14 15:20 | PC.NURSE ---
Discharge orders received. Dressings over puncture sites clean, dry, et intact. No drainage or hematoma noted. Vitals stable. No c/o pain or discomfort. IVs removed. Education provided to patient and family. Patient verbalized understanding of teaching. Follow appointment made with [facility]. Patient discharged to home with family, via wheelchair, in private vehicle.
== END 2022-05-14 15:23 | disposition home or self-care (01) ==
PROVIDERS: PCP Family Medicine; Visit Provider Internal Medicine
DX: I25.110 Atherosclerotic heart disease of native coronary artery with unstable angina pectoris (principal); I25.82 Chronic total occlusion of coronary artery; I10 Essential (primary) hypertension; E78.5 Hyperlipidemia, unspecified; Z79.82 Long term (current) use of aspirin; J44.9 Chronic obstructive pulmonary disease, unspecified; Z80.0 Family history of malignant neoplasm of digestive organs; M81.0 Age-related osteoporosis without current pathological fracture; I73.9 Peripheral vascular disease, unspecified; F17.201 Nicotine dependence, unspecified, in remission
CPT/HCPCS: 36415; 80048; 82810; 85025; 85610; 93460; 96361; 96365; 99152; 99153; C1751; C1769; C1887; C1894; J0360; J1644; J2250; J2405; J3010; J7030; Q0163; Q9967

== ENCOUNTER 2022-07-21 15:12 | Outpatient (RCR) | payer MEDICARE, OTHER, SELFPAY | END 2022-08-02 23:59 | disposition home or self-care (01) | LOC: CR 15:12 | PROVIDERS: PCP Family Medicine; Referring Provider Thoracic Surgery (Cardiothoracic Vascular Surgery); Visit Provider Thoracic Surgery (Cardiothoracic Vascular Surgery) | DX: Z95.1 Presence of aortocoronary bypass graft (principal) | CPT/HCPCS: 93798 ==

== ENCOUNTER 2022-08-06 12:00 | Outpatient (RCR) | payer MEDICARE, OTHER, SELFPAY ==
[2022-08-06] MEDS: denosumab 60 mg SDV SUBCUT (11:06)
== END 2022-09-02 23:59 | disposition home or self-care (01) ==
LOC: ONCMED 12:00
PROVIDERS: PCP Family Medicine; Referring Provider Thoracic Surgery (Cardiothoracic Vascular Surgery); Visit Provider Thoracic Surgery (Cardiothoracic Vascular Surgery)
DX: M81.0 Age-related osteoporosis without current pathological fracture (principal); Z79.899 Other long term (current) drug therapy; Z95.1 Presence of aortocoronary bypass graft
CPT/HCPCS: 93798; 96372; 96401; J0897

== ENCOUNTER 2023-05-17 10:04 | Oncology outpatient (recurring) (ONCR) | payer MEDICARE, OTHER, SELFPAY ==
[2023-05-17 10:27] VITALS: BP 147/82; PULSE 73; RESP 18; TEMP 36.1
[2023-05-17] MEDS: denosumab 60 mg SDV SUBCUT (10:30)
== END 2023-06-03 23:59 | disposition home or self-care (01) ==
LOC: ONCMED 10:06
PROVIDERS: PCP Family Medicine; Visit Provider Family Medicine
DX: M81.0 Age-related osteoporosis without current pathological fracture (principal)
CPT/HCPCS: 96372; J0897

== ENCOUNTER 2024-01-24 13:49 | Oncology outpatient (recurring) (ONCR) | payer MEDICARE, OTHER, SELFPAY ==
[2024-01-24] MEDS: denosumab 60 mg SDV SUBCUT (14:23)
== END 2024-02-03 23:59 | disposition home or self-care (01) ==
LOC: ONCMED 13:50
PROVIDERS: PCP Family Medicine; Visit Provider Family Medicine
DX: M81.0 Age-related osteoporosis without current pathological fracture (principal); Z79.899 Other long term (current) drug therapy
CPT/HCPCS: 96372; J0897

== ENCOUNTER 2024-02-04 12:53 | Outpatient (CLI) | payer MEDICARE, OTHER, SELFPAY ==
--- NOTE | 2024-02-04 12:56 | MM_ITS ---
WS: [id number] BILATERAL 3D TOMOSYNTHESIS DIGITAL SCREENING MAMMOGRAPHY WITH CAD CLINICAL INFORMATION: SCREENING HISTORY: Screening mammogram. No current complaints. COMPARISON: 2021 TECHNIQUE: Bilateral CC and MLO views. FINDINGS: Scattered fibroglandular densities bilaterally. No suspicious focal mass, asymmetry, calcifications, or architectural distortion. No evidence of malignancy. Incidental punctate calcifications. Secretory calcifications. MM/MM scr tomosynthesis 83981 IMPRESSION: DENSITY: There are scattered areas of fibroglandular density. BI-RADS: 2 - Benign. FOLLOW UP: 1 Year Follow-up Recommend return to annual screening mammography.
--- NOTE | 2024-02-04 12:56 | XR_ITS ---
WS: [id number] DEXA (DUAL ENERGY X-RAY ABSORPTIOMETRY) Bone mineral density was performed using a [employer] machine. HISTORY: OSTEOPOROSIS COMPARISON: 10/23/2020 Lumbar spine BMD (L1-L4): 1.342 g/cm2 T score: 1.4 Z score: 3.0 Left forearm BMD: 0.620 g/cm2. T score: -2.9 Z score: -0.6 Compared to the prior study from 10/23/2020. Lumbar spine bone mineral density has increased by 12.5%. LEFT forearm bone mineral density has decreased by 8.7%. XR/XR DEXA axial skeleton* 80259 IMPRESSION: OSTEOPOROSIS based upon the WHO classification for females. Significant decrease in bone mineral density within the forearm since the prior study. Significant increase in bone mineral density within the lumbar spine. The incre ased density is probably related to osteophyte development.
== END 2024-02-04 12:54 | disposition home or self-care (01) ==
LOC: RAD 12:54
PROVIDERS: PCP Family Medicine; Visit Provider Family Medicine
DX: Z12.31 Encounter for screening mammogram for malignant neoplasm of breast (principal); Z13.820 Encounter for screening for osteoporosis; M81.0 Age-related osteoporosis without current pathological fracture; R92.323 Mammographic fibroglandular density, bilateral breasts; R92.1 Mammographic calcification found on diagnostic imaging of breast
CPT/HCPCS: 77063; 77067; 77080

== ENCOUNTER 2024-07-01 20:41 | Emergency (ER) | payer MEDICARE, OTHER, SELFPAY ==
--- NOTE | 2024-07-01 20:46 | ECG_ITS ---
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
--- NOTE | 2024-07-01 20:47 | XRR_ITS ---
PROCEDURE INFORMATION: Exam: XR Chest Exam date and time: 07/01/2024 9:40 PM Age: 73 years old Clinical indication: Shortness of breath; Additional info: SOB TECHNIQUE: Imaging protocol: Radiologic exam of the chest. Views: 1 view. COMPARISON: CT lung screening [id number] 10/23/2020 1:32 PM FINDINGS: Lungs: Pulmonary emphysema. Mild streaky medial left basilar opacification. Pleural spaces: Unremarkable. No pleural effusion. No pneumothorax. Heart/Mediastinum: No cardiomegaly. Multiple mediastinal surgical clips. Vasculature: Aortic atherosclerotic calcification. Bones/joints: Prior median sternotomy. XR/XR chest 1V [id number] IMPRESSION: Mild streaky medial left basilar opacification may represent atelectasis or infiltrate.
[2024-07-01 20:53] VITALS: PULSE 97; RESP 16; TEMP 37.4; O2SAT 95; BMI 25.7
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
[2024-07-01 21:36] LABS: Basophils % 0.4 %; Eosinophils # 0.1 10^3/uL (0.0-0.8); Eosinophils % 0.6 %; Lymphocytes # 1.1 10^3/uL (0.8-4.8); Lymphocytes % 10.2 %; Mean Corpuscular HGB Conc 31.9 g/dL (30-55); Mean Corpuscular Hemoglobin 29.5 pg (27-33); Mean Corpuscular Volume 92.5 fl (85-98); Mean Platelet Volume 8.8 fL (7.4-10.4); Monocytes # 0.9 10^3/uL (0.2-0.9); Neutrophils # 8.19 10^3/uL (1.8-7.7); Neutrophils % 79.2 %; Nucleated Red Blood Cells % 0 %; Platelet Count 281 10^3/cmm (157-399); Red Cell Distribution Width 13.2 % (12.1-15.1); White Blood Count 10.33 10^3/uL (3.29-11.43)
[2024-07-01 21:57] LABS: Alanine Aminotransferase 17 U/L (0-33); Alkaline Phosphatase 52 U/L (35-105); Anion Gap 15.5 (5-19); Aspartate Amino Transferase 20 U/L (0-32); Blood Urea Nitrogen 13 mg/dL (8-23); Calcium 8.7 mg/dL (8.5-10.5); Carbon Dioxide 23 mmol/L (22-29); Chloride 101 mmol/L (98-107); Creatinine Clr Calc Pharmacy 57.5862; Glucose 129 mg/dL (65-115); Osmolality Calculated 284 mOsm/kg (285-295); Potassium 3.5 mmol/L (3.5-5.1); Sodium 136 mmol/L (136-145); Total Bilirubin 0.5 mg/dL (0.15-1.2)
[2024-07-01 23:19] LABS: Influenza A NEGATIVE (Negative); Influenza B NEGATIVE (Negative); Respiratory Syncytial Virus Ce NEGATIVE (Negative); SARS-CoV-2 PCR NEGATIVE (Negative)
== END 2024-07-01 23:15 | disposition home or self-care (01) ==
PROVIDERS: Emergency Provider Emergency Medicine; PCP Family Medicine
DX: J44.1 Chronic obstructive pulmonary disease with (acute) exacerbation (principal); Z11.52 Encounter for screening for COVID-19; Z79.82 Long term (current) use of aspirin; Z79.02 Long term (current) use of antithrombotics/antiplatelets; Z87.891 Personal history of nicotine dependence; I10 Essential (primary) hypertension; E78.5 Hyperlipidemia, unspecified
CPT/HCPCS: 36415; 71045; 80053; 85025; 87637; 93005; 99285